=== PATIENT | female | born 1955 | race Caucasian/White ===

== ENCOUNTER → 2016-07-04 | Outpatient (CLI) | payer OTHER ==
[2016-07-04 13:33] LABS: CREATININE FOR GFR 0.64 MG/DL (0.55-1.02); GLOMERULAR FILTRATION RATE > 60.0 (>51); GLUCOSE, FASTING 105 MG/DL (70-105)
== END ==
LOC: M WUC 09:13
PROVIDERS: ATTEND Internal Medicine Cardiovascular Disease
DX: R73.9 Hyperglycemia, unspecified (principal); I10 Essential (primary) hypertension

== ENCOUNTER → 2016-07-08 | Outpatient (REF) | payer OTHER ==
[2016-07-08 16:51] LABS: MEAN CORPUSCULAR HEMOGLOBIN 28.8 pg (27.0-33.0); MEAN CORPUSCULAR HGB CONC 31.9 g/dl (32.0-36.5); MEAN CORPUSCULAR VOLUME 90.1 fl (80.0-96.0); RED CELL DISTRIBUTION WIDTH 13.8 % (11.5-14.5); WHITE BLOOD COUNT 9.5 K/mm3 (4.0-10.0)
[2016-07-08 18:21] LABS: ALBUMIN 3.9 GM/DL (3.2-5.2); ALBUMIN/GLOBULIN RATIO 1.11 (1.00-1.93); ALKALINE PHOSPHATASE 49 U/L (45-117); ALT/SGPT 18 U/L (12-78); ANION GAP 8 MEQ/L (8-16); AST/SGOT 15 U/L (15-37); BILIRUBIN,TOTAL 0.2 MG/DL (0.2-1.0); BLOOD UREA NITROGEN 9 MG/DL (7-18); CALCIUM LEVEL 8.5 MG/DL (8.5-10.1); CARBON DIOXIDE LEVEL 28 MEQ/L (21-32); CHLORIDE LEVEL 101 MEQ/L (98-107); CHOLESTEROL LEVEL 162 MG/DL (<200); CREATININE FOR GFR 0.57 MG/DL (0.55-1.02); GLOMERULAR FILTRATION RATE > 60.0 (>51); GLUCOSE, FASTING 89 MG/DL (70-105); POTASSIUM SERUM 4.2 MEQ/L (3.5-5.1); SODIUM LEVEL 137 MEQ/L (136-145); TOTAL PROTEIN 7.4 GM/DL (6.4-8.2); TRIGLYCERIDES LEVEL 94 MG/DL (<150)
== END ==
LOC: M SFHCCLAY 14:07
PROVIDERS: ATTEND Nurse Practitioner Family
DX: K21.9 Gastro-esophageal reflux disease without esophagitis (principal); I10 Essential (primary) hypertension; R73.9 Hyperglycemia, unspecified; E78.4 Other hyperlipidemia; E55.9 Vitamin D deficiency, unspecified

== ENCOUNTER → 2016-11-23 | Outpatient (CLI) | payer OTHER ==
--- NOTE | 2016-11-23 14:43 | REP ---
Chest two views HISTORY: Cough Comparison: 05/26/2016 The lungs are clear. The heart is normal in size. The pulmonary vasculature is normal in appearance. Degenerative change is present in the thoracic spine. IMPRESSION: No acute disease. Signed by Alexis Caldwell MD 11/23/2016 02:34 P
== END ==
LOC: M WUC 13:14
PROVIDERS: ATTEND Nurse Practitioner Family
DX: R73.09 Other abnormal glucose (principal)

== ENCOUNTER 2016-12-07 22:14 | Emergency (ER) | payer OTHER ==
[~2016-12-07] VITALS: Ht 149.9 cm; Wt 59.6 kg
[2016-12-07] MEDS ORDERED: VITA1CAP40 (22:36)
[2016-12-07] MEDS ORDERED: ATOR40TA75 (22:36)
[2016-12-07] MEDS ORDERED: LOSA100T36 (22:36)
[2016-12-07] MEDS ORDERED: CLOP75TA2 (22:36)
[2016-12-07] MEDS ORDERED: TRIA1CR (22:36)
[2016-12-07] MEDS ORDERED: ALBU17IN (22:36)
[2016-12-07] MEDS ORDERED: ASPI1TAB15 (22:36)
[2016-12-07] MEDS ORDERED: CYCL10TA (22:36)
[2016-12-07] MEDS ORDERED: FLUC150T (22:36)
[2016-12-07] MEDS ORDERED: NITR0.4S14 (22:36)
[2016-12-07] MEDS ORDERED: AMLO5TAB2 (22:36)
[2016-12-07] MEDS ORDERED: OMEP40CA2 (22:36)
[2016-12-07] MEDS ORDERED: LORA10TA2 (22:36)
[2016-12-07] MEDS ORDERED: RANI150T (22:36)
[2016-12-07] MEDS ORDERED: ZOLP10TA2 (22:36)
[2016-12-07 23:00] LABS: INR 0.89
[2016-12-07] MEDS ORDERED: GI COCKTAIL 50ML BTL(HYOSCYAMINE/MAALOX/LIDOCAINE VISCOUS)(1:3:1) PO ONE (23:00)
[2016-12-07 23:02] LABS: BASO # 0.1 K/mm3 (0.0-0.2); BASO % 0.6 % (0.0-1.0); EOS # 0.3 K/mm3 (0.0-0.50); EOS % 1.6 % (0.0-3.0); LARGE UNSTAINED CELL # 0.1 K/mm3 (0.0-0.4); LARGE UNSTAINED CELL % 0.6 % (0.0-4.0); LYMPH # 2.2 K/mm3 (1.5-4.5); LYMPH % 11.7 % (24.0-44.0); MEAN CORPUSCULAR HEMOGLOBIN 30.8 pg (27.0-33.0); MEAN CORPUSCULAR VOLUME 93.4 fl (80.0-96.0); MONO % 5.4 % (0.0-5.0); NEUTROPHILS # 14.4 K/mm3 (1.8-7.7); PLATELET COUNT, AUTOMATED 321 k/mm3 (150-450); RED CELL DISTRIBUTION WIDTH 13.1 % (11.5-14.5); WHITE BLOOD COUNT 17.9 K/mm3 (4.0-10.0)
[2016-12-07 23:14] LABS: ALBUMIN 4.5 GM/DL (3.2-5.2); ALBUMIN/GLOBULIN RATIO 1.15 (1.00-1.93); ALKALINE PHOSPHATASE 51 U/L (45-117); ALT/SGPT 26 U/L (12-78); ANION GAP 4 MEQ/L (8-16); AST/SGOT 19 U/L (15-37); BILIRUBIN,DIRECT < 0.1 MG/DL (0.0-0.2); BILIRUBIN,TOTAL 0.3 MG/DL (0.2-1.0); BLOOD UREA NITROGEN 8 MG/DL (7-18); CALCIUM LEVEL 9.4 MG/DL (8.5-10.1); CARBON DIOXIDE LEVEL 29 MEQ/L (21-32); CHLORIDE LEVEL 105 MEQ/L (98-107); CREATININE FOR GFR 0.76 MG/DL (0.55-1.02); GLOMERULAR FILTRATION RATE > 60.0 (>51); GLUCOSE, FASTING 110 MG/DL (70-105); POTASSIUM SERUM 3.8 MEQ/L (3.5-5.1); SODIUM LEVEL 138 MEQ/L (136-145); TOTAL PROTEIN 8.4 GM/DL (6.4-8.2)
[2016-12-08] MEDS ORDERED: PANTOPRAZOLE 40MG TAB (PROTONIX) PO ONE (02:45)
[2016-12-08] MEDS ORDERED: SUCRALFATE 1 GM TAB PO ONE (02:45)
[2016-12-08] MEDS ORDERED: MORPHINE 2 MG/ML 1ML SYRINGE IV ONE (02:45)
[2016-12-08 03:06] VITALS: BP 165/84
--- NOTE | 2016-12-08 07:35 | REP ---
Clinical: Chest pain . Comparison: 11/23/2016 . Technique: PA and lateral. Findings: The mediastinum and cardiac silhouette are normal. The lung porter are clear and without acute consolidation, effusion, or pneumothorax. The skeletal structures are intact and normal. Impression: 1. No acute cardiopulmonary process. Signed by Edgar Lundberg MD 12/08/2016 07:26 A
--- NOTE | 2016-12-09 07:23 | ECGEPIP ---
Stationary ECG Study [facility] - ED Test Date: 2016-12-07 Pat Name: NANCY GOMEZ Department: Room: - Gender: F Cushion Padder: mary : 1955 Requested By: LUISITO DAVIS Order Number: [id number] Reading MD: Autumn Mariee Measurements Intervals [place] Rate: 102 P: 69 MI: 156 QRS: 20 QRSD: 77 T: 50 QT: 317 QTc: 414 Interpretive Statements SINUS TACHYCARDIA ABNORMAL RHYTHM ECG INCREASED RATE 05/26/16 Electronically Signed On 12-09-2016 7:22:57 EDT by Autumn Mariee
== END 2016-12-08 03:19 | disposition home or self-care (01) ==
LOC: M ED 22:14
DX: K21.9 Gastro-esophageal reflux disease without esophagitis (principal); F17.210 Nicotine dependence, cigarettes, uncomplicated; J44.9 Chronic obstructive pulmonary disease, unspecified; E78.4 Other hyperlipidemia; I10 Essential (primary) hypertension; I25.10 Atherosclerotic heart disease of native coronary artery without angina pectoris

== ENCOUNTER → 2017-03-21 | Outpatient (CLI) | payer OTHER ==
[~2017-03-21] MED LIST: ALBU17IN; AMLO5TAB2; ASPI1TAB15; ATOR40TA75; CLOP75TA2; CYCL10TA; FLUC150T; LORA10TA2; LOSA100T36; NITR0.4S14; OMEP40CA2; RANI150T; TRIA1CR; VITA1CAP40; ZOLP10TA2
== END ==
LOC: M WUC 09:23
PROVIDERS: ATTEND Nurse Practitioner Family
DX: R73.09 Other abnormal glucose (principal)

== ENCOUNTER → 2017-07-10 | Outpatient (CLI) | payer OTHER ==
[2017-07-10 20:01] LABS: HEMATOCRIT 36.8 % (36.0-47.0); HEMOGLOBIN 11.9 g/dl (12.0-16.0); MEAN CORPUSCULAR HEMOGLOBIN 29.6 pg (27.0-33.0); MEAN CORPUSCULAR HGB CONC 32.3 g/dl (32.0-36.5); MEAN CORPUSCULAR VOLUME 91.5 fl (80.0-96.0); PLATELET COUNT, AUTOMATED 318 10^3/uL (150-450); RED BLOOD COUNT 4.02 10^6/uL (4.00-5.40); RED CELL DISTRIBUTION WIDTH 13.6 % (11.5-14.5); WHITE BLOOD COUNT 8.1 10^3/uL (4.0-10.0)
[2017-07-10 20:28] LABS: ALBUMIN 4.3 GM/DL (3.2-5.2); ALBUMIN/GLOBULIN RATIO 1.39 (1.00-1.93); ALKALINE PHOSPHATASE 46 U/L (45-117); ALT/SGPT 21 U/L (12-78); ANION GAP 9 MEQ/L (8-16); AST/SGOT 16 U/L (7-37); BILIRUBIN,TOTAL 0.3 MG/DL (0.2-1.0); BLOOD UREA NITROGEN 11 MG/DL (7-18); CALCIUM LEVEL 8.7 MG/DL (8.8-10.2); CARBON DIOXIDE LEVEL 26 MEQ/L (21-32); CHLORIDE LEVEL 103 MEQ/L (98-107); CHOLESTEROL LEVEL 167 MG/DL (<200); CREATININE FOR GFR 0.59 MG/DL (0.55-1.30); GLOMERULAR FILTRATION RATE > 60.0 (>45); GLUCOSE, FASTING 91 MG/DL (70-100); HDL CHOLESTEROL 59 MG/DL (>40); NON-HDL-C 108 MG/DL; POTASSIUM SERUM 4.2 MEQ/L (3.5-5.1); SODIUM LEVEL 138 MEQ/L (136-145); TOTAL PROTEIN 7.4 GM/DL (6.4-8.2); TRIGLYCERIDES LEVEL 175 MG/DL (<150)
[2017-07-10 20:29] LABS: ESTIMATED AVERAGE GLUCOSE 114 MG/DL (60-110); HEMOGLOBIN A1c 5.6 %
== END ==
LOC: M WUC 13:44
DX: K21.9 Gastro-esophageal reflux disease without esophagitis (principal); I10 Essential (primary) hypertension; R73.09 Other abnormal glucose; E78.4 Other hyperlipidemia; E55.9 Vitamin D deficiency, unspecified
CPT/HCPCS: 80053

== ENCOUNTER → 2017-07-12 | Outpatient (CLI) | payer OTHER | LOC: M CLY 10:32 | DX: R05 Cough (principal); F17.210 Nicotine dependence, cigarettes, uncomplicated | CPT/HCPCS: 71046 ==

== ENCOUNTER → 2017-09-01 | Outpatient (CLI) | payer OTHER | LOC: M RAD 09:19 | DX: N64.4 Mastodynia (principal); Z80.3 Family history of malignant neoplasm of breast | CPT/HCPCS: 77066 ==

== ENCOUNTER → 2017-10-10 | Outpatient (CLI) | payer OTHER | LOC: M RAD 09:56 | DX: F17.210 Nicotine dependence, cigarettes, uncomplicated (principal) | CPT/HCPCS: G0297 ==

== ENCOUNTER → 2017-11-21 | Outpatient (CLI) | payer OTHER ==
[2017-11-21 12:22] LABS: CALCIUM LEVEL 9.2 MG/DL (8.8-10.2); CHOLESTEROL LEVEL 166 MG/DL (<200); CHOLESTEROL RISK RATIO 2.677 (<5); HDL CHOLESTEROL 62 MG/DL (>40); LDL CHOLESTEROL 77.4 MG/DL (<100); NON-HDL-C 104 MG/DL; TRIGLYCERIDES LEVEL 133 MG/DL (<150)
[2017-11-21 12:35] LABS: TOTAL 25(OH) VITAMIN D 67.1 NG/ML (30.0-100.0)
== END ==
LOC: M WUC 10:18
DX: I10 Essential (primary) hypertension (principal)
CPT/HCPCS: 82310

== ENCOUNTER → 2017-11-22 | Outpatient (CLI) | payer OTHER | LOC: M CLY 09:48 | DX: M19.012 Primary osteoarthritis, left shoulder (principal); M51.37 Other intervertebral disc degeneration, lumbosacral region; M54.5 Low back pain | CPT/HCPCS: 72110 ==

== ENCOUNTER → 2018-02-22 | Outpatient (CLI) | payer OTHER | LOC: M CLY 10:43 | DX: M19.041 Primary osteoarthritis, right hand (principal); M19.042 Primary osteoarthritis, left hand | CPT/HCPCS: 73120 ==

== ENCOUNTER → 2018-08-03 | Outpatient (CLI) | payer OTHER, MEDICAID ==
[~2018-08-03] MED LIST changes: -AMLO5TAB2; +AMLO5TAB6; +LORA-243; -LORA10TA2; -LOSA100T36; +LOSA100T50; -VITA1CAP40; +VITA50005
[2018-08-03 13:17] LABS: HEMATOCRIT 35.5 % (36.0-47.0); MEAN CORPUSCULAR HGB CONC 33.8 g/dl (32.0-36.5); MEAN CORPUSCULAR VOLUME 88.8 fl (80.0-96.0); PLATELET COUNT, AUTOMATED 312 10^3/uL (150-450); WHITE BLOOD COUNT 9.7 10^3/uL (4.0-10.0)
[2018-08-03 13:27] LABS: INR 0.92; PROTHROMBIN TIME 12.5 SECONDS (12.1-14.4)
[2018-08-03 13:28] LABS: PARTIAL THROMBOPLASTIN TIME 32.1 SECONDS (25.4-37.6)
== END ==
LOC: M WUC 09:16
PROVIDERS: ATTEND Physician Assistant
DX: Z01.812 Encounter for preprocedural laboratory examination (principal)

== ENCOUNTER → 2018-08-03 | Outpatient (CLI) | payer OTHER, MEDICAID ==
[2018-08-03 13:02] LABS: HEMATOCRIT 35.7 % (36.0-47.0); MEAN CORPUSCULAR HEMOGLOBIN 29.7 pg (27.0-33.0); MEAN CORPUSCULAR HGB CONC 33.6 g/dl (32.0-36.5); MEAN CORPUSCULAR VOLUME 88.4 fl (80.0-96.0); PLATELET COUNT, AUTOMATED 306 10^3/uL (150-450); RED BLOOD COUNT 4.04 10^6/uL (4.00-5.40); WHITE BLOOD COUNT 9.1 10^3/uL (4.0-10.0)
[2018-08-03 13:11] LABS: ALT/SGPT 29 U/L (12-78); BILIRUBIN,TOTAL 0.4 MG/DL (0.2-1.0); BLOOD UREA NITROGEN 12 MG/DL (7-18); CALCIUM LEVEL 8.7 MG/DL (8.8-10.2); CARBON DIOXIDE LEVEL 27 MEQ/L (21-32); CHLORIDE LEVEL 101 MEQ/L (98-107); CHOLESTEROL LEVEL 153 MG/DL (<200); CHOLESTEROL RISK RATIO 2.781 (<5); CREATININE FOR GFR 0.56 MG/DL (0.55-1.30); GLOMERULAR FILTRATION RATE > 60.0 (>45); GLUCOSE, FASTING 104 MG/DL (70-100); HDL CHOLESTEROL 55 MG/DL (>40); LDL CHOLESTEROL 76 MG/DL (<100); NON-HDL-C 98 MG/DL; POTASSIUM SERUM 4.3 MEQ/L (3.5-5.1); SODIUM LEVEL 135 MEQ/L (136-145); TOTAL PROTEIN 6.9 GM/DL (6.4-8.2); TRIGLYCERIDES LEVEL 109 MG/DL (<150)
[2018-08-03 15:40] LABS: TOTAL 25(OH) VITAMIN D 61.7 NG/ML (30.0-100.0)
== END ==
LOC: M WUC 09:20
PROVIDERS: ATTEND Nurse Practitioner Family
DX: I10 Essential (primary) hypertension (principal); E78.49 Other hyperlipidemia; E55.9 Vitamin D deficiency, unspecified

== ENCOUNTER → 2018-11-26 | Outpatient (CLI) | payer OTHER ==
[~2018-11-26] MED LIST changes: +TRIA0.1C60; -TRIA1CR
[2018-11-26 16:44] LABS: ALBUMIN 3.9 GM/DL (3.2-5.2); BLOOD UREA NITROGEN 14 MG/DL (7-18); CALCIUM LEVEL 9.4 MG/DL (8.8-10.2); CARBON DIOXIDE LEVEL 28 MEQ/L (21-32); CHLORIDE LEVEL 104 MEQ/L (98-107); CREATININE FOR GFR 0.62 MG/DL (0.55-1.30); GLOMERULAR FILTRATION RATE > 60.0 (>45); GLUCOSE, FASTING 97 MG/DL (70-100); PHOSPHORUS LEVEL 4.8 MG/DL (2.5-4.9); SODIUM LEVEL 137 MEQ/L (136-145)
[2018-11-26 16:46] LABS: BASO # 0.1 10^3/uL (0.0-0.2); BASO % 0.9 % (0.0-1.0); EOS # 0.2 10^3/uL (0.0-0.50); EOS % 2.5 % (0.0-3.0); HEMATOCRIT 37.6 % (36.0-47.0); HEMOGLOBIN 12.5 g/dl (12.0-15.5); LYMPH # 2.5 10^3/uL (1.5-4.5); LYMPH % 30.7 % (24.0-44.0); MEAN CORPUSCULAR HEMOGLOBIN 30.7 pg (27.0-33.0); MEAN CORPUSCULAR HGB CONC 33.2 g/dl (32.0-36.5); MEAN CORPUSCULAR VOLUME 92.4 fl (80.0-96.0); MONO # 0.9 10^3/uL (0.0-0.8); MONO % 11.2 % (0.0-5.0); NEUTROPHILS # 4.4 10^3/uL (1.8-7.7); NEUTROPHILS % 54.3 % (36.0-66.0); PLATELET COUNT, AUTOMATED 301 10^3/uL (150-450); RED BLOOD COUNT 4.07 10^6/uL (4.00-5.40); WHITE BLOOD COUNT 8.1 10^3/uL (4.0-10.0)
== END ==
LOC: M WUC 11:05
PROVIDERS: ATTEND Physician Assistant
DX: I25.119 Atherosclerotic heart disease of native coronary artery with unspecified angina pectoris (principal)

== ENCOUNTER → 2019-04-30 | Outpatient (CLI) | payer OTHER ==
[~2019-04-30] MED LIST changes: -OMEP40CA2; +OMEP40CA97
--- NOTE | 2019-04-30 09:42 | PFTRPT ---
Height: 58.00 Inches Weight: 142.00 Lbs BSA: 1.57 Diagnosis: R06.00 DATE OF PROCEDURE: 04/30/2019 ORDERED BY: CT Murphy Spirometry: Pre and post bronchodilator study of excellent technical quality. Forced vital capacity reduced. FEV1 in proportion. Obstructive index is, therefore, normal. Flow Volume Loop: Expiratory limb of the flow volume loop does show some nonspecific limitation. No significant bronchodilator response identified. Lung Volumes: Total lung capacity normal. Residual volume borderline for air trapping. Diffusing Capacity: Diffusing capacity, although reduced, is appropriate for alveolar volume. Hemoglobin: Hemoglobin reduced at 10.2. Airway Mechanics: Airway resistance elevated with a concomitant decrease in airway conductance. IMPRESSION: Nonspecific flow rate limitation with anemia and diffusing capacity impairment probably on that basis. Mild elevation of the airway resistance. Please correlate clinically. MTDD
--- NOTE | 2019-04-30 11:00 | REP ---
CT CHEST WITHOUT CONTRAST: Low-dose screening exam. HISTORY: Nicotine dependence. Comparison chest CT study is from October 10, 2017. CT FINDINGS: No evidence of lung mass or significant pulmonary nodule is seen. Minimal linear fibrosis is seen in the right middle lobe. This is unchanged. No endobronchial lesion is appreciated. There is some vascular calcification. IMPRESSION: Lung RADS category [address] negative exam[address] Repeat screening CT study suggested 1 year. Electronically Signed by Tereso Toribio MD 04/30/2019 03:33 P
== END ==
LOC: M RAD 08:29
PROVIDERS: ATTEND Physician Assistant
DX: Z12.2 Encounter for screening for malignant neoplasm of respiratory organs (principal); F17.218 Nicotine dependence, cigarettes, with other nicotine-induced disorders
CPT/HCPCS: 88738; 94060; 94726; 94729; G0297

== ENCOUNTER → 2019-07-23 | Outpatient (REF) | payer OTHER ==
[2019-07-23 16:45] LABS: HEMOGLOBIN 13.2 g/dl (12.0-15.5); MEAN CORPUSCULAR HEMOGLOBIN 29.5 pg (27.0-33.0); MEAN CORPUSCULAR HGB CONC 32.2 g/dl (32.0-36.5); MEAN CORPUSCULAR VOLUME 91.5 fl (80.0-96.0); PLATELET COUNT, AUTOMATED 319 10^3/uL (150-450); RED BLOOD COUNT 4.48 10^6/uL (4.00-5.40); WHITE BLOOD COUNT 10.2 10^3/uL (4.0-10.0)
[2019-07-23 16:59] LABS: ALBUMIN 4.2 GM/DL (3.2-5.2); ALT/SGPT 26 U/L (12-78); BILIRUBIN,TOTAL 0.3 MG/DL (0.2-1.0); BLOOD UREA NITROGEN 7 MG/DL (7-18); CALCIUM LEVEL 9.3 MG/DL (8.8-10.2); CARBON DIOXIDE LEVEL 28 MEQ/L (21-32); CHLORIDE LEVEL 106 MEQ/L (98-107); CHOLESTEROL LEVEL 157 MG/DL (<200); CHOLESTEROL RISK RATIO 2.803 (<5); CREATININE FOR GFR 0.52 MG/DL (0.55-1.30); GLOMERULAR FILTRATION RATE > 60.0 (>45); GLUCOSE, FASTING 93 MG/DL (70-100); HDL CHOLESTEROL 56 MG/DL (>40); LDL CHOLESTEROL 75 MG/DL (<100); NON-HDL-C 101 MG/DL; POTASSIUM SERUM 4.5 MEQ/L (3.5-5.1); SODIUM LEVEL 139 MEQ/L (136-145); TOTAL PROTEIN 7.4 GM/DL (6.4-8.2); TRIGLYCERIDES LEVEL 130 MG/DL (<150)
[2019-07-23 19:15] LABS: HEMOGLOBIN A1c 5.6 %
[2019-07-24 11:44] LABS: TOTAL 25(OH) VITAMIN D 52.9 NG/ML (30.0-100.0)
[2019-07-24 12:52] LABS: HEPATITIS C VIRUS ABY INDEX 1.5 INDEX (<0.8)
== END ==
LOC: M SFHCCLAY 11:47
PROVIDERS: ATTEND Nurse Practitioner Family
DX: M54.5 Low back pain (principal)

== ENCOUNTER → 2019-07-29 | Outpatient (CLI) | payer OTHER ==
--- NOTE | 2019-07-29 16:13 | REPMRS ---
Patient History The patient states she had a clinical breast exam in 2019. Family history of breast cancer at age 60 in mother. Digital Woman Screen Mammo: July 29, 2019 - Exam #: [id number] Bilateral CC and MLO view(s) were taken. Technologist: Nathalie Sexton, Technologist Prior study comparison: September 01, 2017, digital mammo diagnostic bilateral, performed at [facility]. FINDINGS: There are scattered fibroglandular densities. There has been no change in the appearance of the mammogram from the prior studies. There is a mild amount of scattered fibroglandular density which is fairly symmetric. There is no interval development of dominant mass, architectural distortion, or grouped microcalcification suggestive of malignancy. 3-D tomosynthesis shows no additional findings. Assessment: BI-RADS/ACR category 1 mammogram. Negative Mammogram. Recommendation Routine screening mammogram of both breasts in 1 year (for women over age 40). This patient's Lifetime Breast Cancer Risk is estimated at 10.6 %. This mammogram was interpreted with the aid of an FDA-approved computer-aided dectection system. Electronically Signed By: Julien Toribio MD 07/29/19 [id number]
== END ==
LOC: M WHC 15:07
PROVIDERS: ATTEND Nurse Practitioner Family
DX: Z12.31 Encounter for screening mammogram for malignant neoplasm of breast (principal); Z80.3 Family history of malignant neoplasm of breast

== ENCOUNTER → 2019-10-15 | Outpatient (CLI) | payer OTHER ==
[~2019-10-15] MED LIST changes: +CYCL-707; -CYCL10TA
== END ==
LOC: M LABSMTC 13:25
PROVIDERS: ATTEND Family Medicine
DX: Z11.59 Encounter for screening for other viral diseases (principal); Z20.828 Contact with and (suspected) exposure to other viral communicable diseases

== ENCOUNTER → 2020-03-17 | Outpatient (CLI) | payer OTHER ==
[~2020-03-17] MED LIST changes: +AMLO1TAB24; -AMLO5TAB6; +ASPI-546; -ASPI1TAB15
[2020-03-17 13:41] LABS: HEMATOCRIT 39.2 % (36.0-47.0); MEAN CORPUSCULAR HEMOGLOBIN 29.6 pg (27.0-33.0); MEAN CORPUSCULAR HGB CONC 33.2 g/dl (32.0-36.5); MEAN CORPUSCULAR VOLUME 89.3 fl (80.0-96.0); PLATELET COUNT, AUTOMATED 286 10^3/uL (150-450); RED BLOOD COUNT 4.39 10^6/uL (4.00-5.40); WHITE BLOOD COUNT 6.7 10^3/uL (4.0-10.0)
[2020-03-17 14:32] LABS: ALBUMIN 3.7 GM/DL (3.2-5.2); ALT/SGPT 20 U/L (12-78); BILIRUBIN,TOTAL 0.4 MG/DL (0.2-1.0); BLOOD UREA NITROGEN 8 MG/DL (7-18); CALCIUM LEVEL 8.7 MG/DL (8.8-10.2); CARBON DIOXIDE LEVEL 24 MEQ/L (21-32); CHLORIDE LEVEL 103 MEQ/L (98-107); CHOLESTEROL LEVEL 186 MG/DL (<200); CHOLESTEROL RISK RATIO 3.509 (<5); CREATININE FOR GFR 0.54 MG/DL (0.55-1.30); GLOMERULAR FILTRATION RATE > 60.0 (>45); GLUCOSE, FASTING 103 MG/DL (70-100); HDL CHOLESTEROL 53 MG/DL (>40); LDL CHOLESTEROL 96 MG/DL (<100); NON-HDL-C 133 MG/DL; POTASSIUM SERUM 4.4 MEQ/L (3.5-5.1); SODIUM LEVEL 134 MEQ/L (136-145); TOTAL 25(OH) VITAMIN D 44.5 NG/ML (30.0-100.0); TOTAL PROTEIN 6.9 GM/DL (6.4-8.2); TRIGLYCERIDES LEVEL 187 MG/DL (<150)
== END ==
LOC: M WUC 11:06
PROVIDERS: ATTEND Nurse Practitioner Family
DX: E78.5 Hyperlipidemia, unspecified (principal); I10 Essential (primary) hypertension; E55.9 Vitamin D deficiency, unspecified; R53.83 Other fatigue

== ENCOUNTER → 2020-03-17 | Outpatient (CLI) | payer OTHER ==
[2020-03-17 13:41] LABS: PLATELET COUNT, AUTOMATED 284 10^3/uL (150-450)
[2020-03-17 13:49] LABS: INR 0.91; PROTHROMBIN TIME 12.4 SECONDS (12.5-14.3)
[2020-03-17 13:50] LABS: PARTIAL THROMBOPLASTIN TIME 28.4 SECONDS (24.2-38.5)
[2020-03-17 14:04] LABS: COLLAGEN EPINEPHRINE 122 SECONDS (74-162)
== END ==
LOC: M WUC 11:09
PROVIDERS: ATTEND Physician Assistant
DX: M51.27 Other intervertebral disc displacement, lumbosacral region (principal)

== ENCOUNTER → 2020-03-18 | Outpatient (CLI) | payer OTHER | LOC: M LABSMTC 10:13 | PROVIDERS: ATTEND Physician Assistant | DX: Z11.59 Encounter for screening for other viral diseases (principal) ==

== ENCOUNTER → 2020-05-05 | Outpatient (REF) | payer OTHER | LOC: M SFHCCLAY 09:07 | PROVIDERS: ATTEND Physician Assistant | DX: R30.0 Dysuria (principal) ==

== ENCOUNTER → 2020-05-11 | Outpatient (REF) | payer OTHER | LOC: M SFHCCLAY 16:29 | PROVIDERS: ATTEND Physician Assistant | DX: R30.0 Dysuria (principal) ==

== ENCOUNTER → 2020-05-20 | Outpatient (CLI) | payer OTHER | LOC: M LABSMTC 12:13 | PROVIDERS: ATTEND Physician Assistant | DX: Z01.812 Encounter for preprocedural laboratory examination (principal); Z20.828 Contact with and (suspected) exposure to other viral communicable diseases ==

== ENCOUNTER → 2020-05-22 | Outpatient (CLI) | payer OTHER ==
--- NOTE | 2020-05-22 13:43 | REP ---
INDICATION: NICOTINE DEPENDENCE. COMPARISON: Comparison prior screening lung CT studies are dated April 30, 2019 and October 10, 2017.. TECHNIQUE: Low-dose screening chest CT. 3 mm axial lung window only slices. 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 There is some vascular calcification in the aortic arch and in the coronary artery distribution. There is a granulomatous calcified nodule in the periphery of the right upper lobe on page 11/08/1993 series 201 of today's study. This is unchanged from the 2018 prior study. There is a 3 mm subpleural nodule in the left lower lobe without visible calcification which is also unchanged from the 2018 study. This nodule projects on page 5494 in today's study. There is mild linear fibrosis in the right base unchanged. No new pulmonary nodule is appreciated. IMPRESSION: Stable lung RADS category 1 findings. Repeat study suggested in 1 year. <Electronically signed by Julien Toribio > 05/22/20 [id number]
== END ==
LOC: M RAD 10:53
PROVIDERS: ATTEND Physician Assistant
DX: F17.218 Nicotine dependence, cigarettes, with other nicotine-induced disorders (principal)

== ENCOUNTER → 2020-06-19 | Outpatient (REF) | payer OTHER | LOC: M SFHCCLAY 09:16 | PROVIDERS: ATTEND Physician Assistant | DX: N89.8 Other specified noninflammatory disorders of vagina (principal) ==

== ENCOUNTER → 2020-07-01 | Outpatient (CLI) | payer OTHER ==
[~2020-07-01] MED LIST changes: +PROHANCE 279.3MG/ML 15ML VIAL As Ordered ONE
--- NOTE | 2020-07-02 08:20 | REP ---
INDICATION: SPONDYLOLISTHESIS. COMPARISON: Comparison MRI study of the lumbar spine is from July 23, 2018.. TECHNIQUE: Sagittal and axial T1 and T2-weighted scans are acquired in the usual fashion with and without fat saturation. Sequences include spin echo, turbo spin-echo, and STIR imaging sequences. Gadolinium enhancement dose was 11 mL of intravenous ProHance. Post gadolinium enhanced axial and sagittal T1 weighted scans are included. FINDINGS: Lumbar vertebral body heights are preserved. Alignment is unchanged. No extra vertebral abnormality is observed. The tip of the conus medullaris is normal in position and appearance at L1-L2 disc level. There are degenerative disc changes in the lower thoracic spine at T10-T11, T11-12, and T12-L1. At T 11 12, there is central disc bulging effacing the ventral subarachnoid space. Reactive marrow changes are seen on either side of this disc in the T 11 and T12 vertebral body. These findings appear to be unchanged. Sagittal images at T12-L1 again demonstrate mild central disc bulging. At L1-L2, axial and sagittal images demonstrate mild diffuse disc bulging. No central canal stenosis is seen. No foraminal narrowing or disc protrusion is seen. At L2-3 there is degenerative disc narrowing and mild diffuse disc bulging. This indents the ventral margin of thecal sac. There is no central canal stenosis or neural foraminal narrowing. No change from comparison study at L2-3. At L3-4, there is diffuse disc bulging contributing along with ligamentum flavum hypertrophy and developmentally short pedicles, 2 mild central canal stenosis. No neural foraminal narrowing is seen. No change from comparison study. At L4-5, degenerative disc disease is again seen. There is a 4 mm and grade 1 spondylolisthesis which is slightly more prominent. Diffuse disc bulging is present. There is mild left-sided foraminal narrowing due to disc bulging and facet hypertrophy. This is unchanged. Mild central canal stenosis is noted. Moderate osteoarthritic facet disease is noted with ligamentum flavum hypertrophy. There is a small central focal disc protrusion contributing to the thecal sac compression at this level. This finding is unchanged. At L5-S1, diffuse disc bulging and a small right paracentral focal disc protrusion or again seen. Minimal thecal sac compression. Facet hypertrophy is noted bilaterally. Mild bilateral neural foramina narrowing is appreciated. Findings unchanged at L5-S1. IMPRESSION: Degenerative spondylosis as above. Central canal stenosis at L3-4 and L4-5. Grade 1 spondylolisthesis L4-5 now measures 4 mm, previously 3. Otherwise unchanged from comparison study <Electronically signed by Julien Toribio > 07/02/20 [id number]
== END ==
LOC: M RAD 16:23
PROVIDERS: ATTEND Physician Assistant
DX: M43.16 Spondylolisthesis, lumbar region (principal); M51.26 Other intervertebral disc displacement, lumbar region; M48.061 Spinal stenosis, lumbar region without neurogenic claudication
CPT/HCPCS: 72158; A9576

== ENCOUNTER → 2020-07-21 | Outpatient (REF) | payer OTHER ==
[~2020-07-21] MED LIST changes: -PROHANCE 279.3MG/ML 15ML VIAL As Ordered ONE
[2020-07-21 16:27] LABS: BASO # 0.1 10^3/uL (0.0-0.2); BASO % 0.8 % (0.0-1.0); EOS # 0.2 10^3/uL (0.0-0.5); EOS % 3.4 % (0.0-3.0); HEMATOCRIT 37.8 % (36.0-47.0); HEMOGLOBIN 12.1 g/dl (12.0-15.5); LYMPH # 2.4 10^3/uL (1.5-5.0); MEAN CORPUSCULAR HEMOGLOBIN 29.2 pg (27.0-33.0); MEAN CORPUSCULAR VOLUME 91.1 fl (80.0-96.0); MONO # 0.6 10^3/uL (0.0-0.8); MONO % 8.8 % (0.0-5.0); NEUTROPHILS # 3.8 10^3/uL (1.5-8.5); NEUTROPHILS % 52.7 % (36.0-66.0); PLATELET COUNT, AUTOMATED 280 10^3/uL (150-450); RED BLOOD COUNT 4.15 10^6/uL (4.00-5.40); WHITE BLOOD COUNT 7.1 10^3/uL (4.0-10.0)
[2020-07-21 16:48] LABS: ALBUMIN 3.7 GM/DL (3.2-5.2); ALT/SGPT 22 U/L (12-78); BILIRUBIN,TOTAL 0.2 MG/DL (0.2-1.0); BLOOD UREA NITROGEN 11 MG/DL (7-18); CALCIUM LEVEL 8.7 MG/DL (8.8-10.2); CARBON DIOXIDE LEVEL 30 MEQ/L (21-32); CHLORIDE LEVEL 105 MEQ/L (98-107); CREATININE FOR GFR 0.55 MG/DL (0.55-1.30); GLOMERULAR FILTRATION RATE > 60.0 (>45); GLUCOSE, FASTING 103 MG/DL (70-100); LIPASE 146 U/L (73-393); POTASSIUM SERUM 4.4 MEQ/L (3.5-5.1); SODIUM LEVEL 139 MEQ/L (136-145); TOTAL PROTEIN 6.4 GM/DL (6.4-8.2)
== END ==
LOC: M SFHCCLAY 11:10
PROVIDERS: ATTEND Physician Assistant
DX: R10.32 Left lower quadrant pain (principal)

== ENCOUNTER → 2020-07-21 | Outpatient (CLI) | payer OTHER ==
--- NOTE | 2020-07-21 11:50 | REP ---
INDICATION: R10.32 LEFT LOWER QUADRANT PAIN. COMPARISON: Comparison radiographs are from November 22, 2017.. TECHNIQUE: Supine films of the abdomen, two views provided. FINDINGS: The bowel gas pattern is normal with air and stool in a nondistended colon. Psoas margins and flank stripes are intact. Vascular calcification is observed. There are degenerative spondylosis changes in the lumbar spine. No mass, organomegaly, or other pathologic calcification is seen. IMPRESSION: Vascular calcification. Normal bowel gas pattern. Negative KUB. <Electronically signed by Julien Toribio > 07/21/20 [id number]
== END ==
LOC: M CLY 11:22
PROVIDERS: ATTEND Physician Assistant
DX: R10.32 Left lower quadrant pain (principal)

== ENCOUNTER → 2020-07-29 | Outpatient (CLI) | payer OTHER ==
[~2020-07-29] MED LIST changes: +GASTROGRAFIN SOLUTION 30ML (Q9963) As Ordered ONE; +ISOVUE-370 76% 100ML VIAL As Ordered ONE
--- NOTE | 2020-07-30 07:31 | REP ---
INDICATION: WORSENING LOWER ABD PAIN, DISTENSION, SMOKER. COMPARISON: 05/12/2016 TECHNIQUE: Axial contrast-enhanced images from the lung bases to the pubic symphysis using oral and 100 cc Isovue 370 intravenous contrast material. Coronal and sagittal reformations obtained. This CT examination was performed using the following dose reduction techniques: Automated exposure control, adjustment of mA and/or kv according to the patient's size, and the use of iterative reconstruction technique. FINDINGS: Lung bases are clear. Visualized heart and pericardium normal. Liver includes stable 1.3 cm hemangioma within the central right lobe. Spleen, pancreas, gallbladder, bilateral adrenal glands and kidneys are normal. The enteric system including stomach, small, and large bowel appears normal. No evidence for obstruction or acute inflammatory process. Normal terminal ileum and appendix are identified in the right lower quadrant. Few scattered sigmoid diverticula noted without acute diverticulitis. Pelvis demonstrates normal bladder and evidence for prior hysterectomy. No ascites. No free air. No intraperitoneal or retroperitoneal adenopathy. Abdominal aorta and vasculature demonstrate atherosclerotic changes without aneurysm or dissection. Musculoskeletal structures are intact and without acute osseous abnormality. IMPRESSION: No acute abdominopelvic pathology appreciated. Stable hepatic hemangioma. Scattered sigmoid diverticula without acute diverticulitis. No ascites, focal inflammatory stranding, adenopathy, or free air. <Electronically signed by Edgar Lundberg > 07/30/20 [id number]
== END ==
LOC: M RAD 15:40
PROVIDERS: ATTEND Physician Assistant
DX: R10.32 Left lower quadrant pain (principal)
CPT/HCPCS: 74177; Q9963; Q9967

== ENCOUNTER → 2020-07-31 | Outpatient (CLI) | payer OTHER ==
[~2020-07-31] MED LIST changes: -GASTROGRAFIN SOLUTION 30ML (Q9963) As Ordered ONE; -ISOVUE-370 76% 100ML VIAL As Ordered ONE
--- NOTE | 2020-07-31 10:43 | REPMRS ---
Patient History The patient states she has not had a clinical breast exam in over a year. Family history of breast cancer at age 60 in mother. Digital Woman Screen Mammo: July 31, 2020 - Exam #: [id number] Bilateral CC and MLO view(s) were taken. Technologist: Jazmyn Membreno Technologist Prior study comparison: July 29, 2019, bilateral digital woman screen mammo performed at [facility]. September 01, 2017, digital mammo diagnostic bilateral, performed at [facility]. FINDINGS: There are scattered fibroglandular densities. The Volpara volumetric breast density category is:B. There has been no change in the appearance of the mammogram from the prior studies. There is a mild amount of scattered fibroglandular density which is fairly symmetric. There is no interval development of dominant mass, architectural distortion, or grouped microcalcification suggestive of malignancy. 3-D tomosynthesis shows no additional findings. Assessment: BI-RADS/ACR category 1 mammogram. Negative Mammogram. Recommendation Routine screening mammogram of both breasts in 1 year (for women over age 40). This patient's [facility] Lifetime Breast Cancer Risk is estimated at 10.2 %. This mammogram was interpreted with the aid of an FDA-approved computer-aided dectection system. Electronically Signed By: Julien Toribio MD 07/31/20 [id number]
== END ==
LOC: M WHC 09:01
PROVIDERS: ATTEND Nurse Practitioner Family
DX: Z12.31 Encounter for screening mammogram for malignant neoplasm of breast (principal); Z78.0 Asymptomatic menopausal state; M85.80 Other specified disorders of bone density and structure, unspecified site; Z80.3 Family history of malignant neoplasm of breast

== ENCOUNTER → 2020-08-14 | Outpatient (CLI) | payer OTHER ==
--- NOTE | 2020-08-14 12:44 | DEXAMM ---
INDICATION: Z78.0 MENOPAUSE,M85.80 OSTEOPENIA AFTER MENOPAUSE. COMPARISON: None. TECHNIQUE: Bone density was measured using dual-energy x-ray absorptiometry (DEXA). FINDINGS: AP SPINE L1-L4 BMD 1.162 g/cm2 Young Adult T-Score -0.3 Age Matched Z-Score 1.2. LT FEMUR, TOTAL BMD 0.924 g/cm2 Young Adult T-Score -0.7 Age Matched Z-Score 0.4. LT NECK BMD 0.852 g/cm2 Young Adult T-Score -1.3 Age Matched Z-Score 0.0. RT FEMUR, TOTAL BMD 0.924 g/cm2 Young Adult T-Score -0.7 Age Matched Z-Score 0.4. RT NECK BMD 0.853 g/cm2 Young Adult T-Score -1.3 Age Matched Z-Score 0.1. IMPRESSION: There is normal bone density of the spine. There is low bone density of the left hip. There is low bone density of the right hip. FOLLOW-UP: Recommendation for the next bone density exam: 2 years. <Electronically signed by German Smith > 08/14/20 [id number]
== END ==
LOC: M WHC 10:34
PROVIDERS: ATTEND Nurse Practitioner Family
DX: Z78.0 Asymptomatic menopausal state (principal); M85.80 Other specified disorders of bone density and structure, unspecified site

== ENCOUNTER → 2020-08-31 | Outpatient (CLI) | payer OTHER ==
--- NOTE | 2020-08-31 18:11 | REPVR ---
PROCEDURE INFORMATION: Exam: MR Cervical Spine Without Contrast Exam date and time: 08/31/2020 5:11 PM Age: 65 years old Clinical indication: Neck pain; Additional info: Cervical disc degeneration TECHNIQUE: Imaging protocol: Multiplanar magnetic resonance images of the cervical spine without contrast. COMPARISON: CR SPINE LS COMPLETE 11/22/2017 10:01 AM FINDINGS: Cervical vertebral body heights are intact. Straightening of the cervical lordosis. The dens is intact. No abnormal marrow signal. No cord compression, expansion, or abnormal cord signal. Visualized structures of the posterior fossa are unremarkable. Soft tissues are unremarkable. Approximately 2.4 cm T2 hyperintense nodule in the right lobe of the thyroid gland. C2-C3: No significant canal or foraminal narrowing. C3-C4: No significant canal or foraminal narrowing. C4-C5: No significant canal or foraminal narrowing. C5-C6: Small posterior disc protrusion causing mild canal narrowing. No significant foraminal narrowing. C6-C7: Posterior disc protrusion and uncovertebral spurring cause mild to moderate canal narrowing with mild left and moderate right foraminal narrowing. C7-T1: Combination of posterior disc protrusion and facet hypertrophy cause mild to moderate canal narrowing. Along with uncovertebral spurring there is moderate right mild left foraminal narrowing. IMPRESSION: 1. Multilevel spondylotic changes of the cervical spine, as above. 2. Approximately 2.4 cm T2 hyperintense nodule in the right lobe of the thyroid gland. Recommend follow-up dedicated nonemergent thyroid ultrasound. Electronically signed by: Leno Tinsley On 08/31/2020 18:11:40 PM
== END ==
LOC: M RAD 17:07
PROVIDERS: ATTEND Physician Assistant
DX: M50.30 Other cervical disc degeneration, unspecified cervical region (principal); M50.222 Other cervical disc displacement at C5-C6 level; M50.223 Other cervical disc displacement at C6-C7 level; M50.23 Other cervical disc displacement, cervicothoracic region; M47.812 Spondylosis without myelopathy or radiculopathy, cervical region; E04.9 Nontoxic goiter, unspecified

== ENCOUNTER → 2020-11-27 | Outpatient (REF) | payer OTHER ==
[~2020-11-27] MED LIST changes: +OMEP40CA4; -OMEP40CA97
[2020-11-27 16:56] LABS: CHOLESTEROL RISK RATIO 2.83 (<5)
[2020-11-27 17:02] LABS: TOTAL 25(OH) VITAMIN D 35.7 NG/ML (30.0-100.0)
== END ==
LOC: M SFHCCLAY 11:14
PROVIDERS: ATTEND Nurse Practitioner Family
DX: E78.5 Hyperlipidemia, unspecified (principal); E55.9 Vitamin D deficiency, unspecified

== ENCOUNTER → 2021-05-24 | Outpatient (REF) | payer OTHER ==
[~2021-05-24] MED LIST changes: -FLUC150T; +FLUC150T9; +LOSA100T45; -LOSA100T50
[2021-05-24 16:28] LABS: BASO # 0.1 10^3/uL (0.0-0.2); BASO % 0.8 % (0.0-1.0); EOS # 0.2 10^3/uL (0.0-0.5); EOS % 2.5 % (0.0-3.0); HEMATOCRIT 36.3 % (36.0-47.0); HEMOGLOBIN 11.6 g/dl (12.0-15.5); LYMPH # 2.8 10^3/uL (1.5-5.0); LYMPH % 35.4 % (24.0-44.0); MEAN CORPUSCULAR HEMOGLOBIN 29.1 pg (27.0-33.0); MEAN CORPUSCULAR VOLUME 91.2 fl (80.0-96.0); MONO # 0.8 10^3/uL (0.0-0.8); MONO % 10.2 % (2.0-8.0); NEUTROPHILS % 50.7 % (36.0-66.0); PLATELET COUNT, AUTOMATED 280 10^3/uL (150-450); RED BLOOD COUNT 3.98 10^6/uL (4.00-5.40); WHITE BLOOD COUNT 7.9 10^3/uL (4.0-10.0)
[2021-05-24 20:41] LABS: ALBUMIN 3.4 GM/DL (3.2-5.2); ALT/SGPT 25 U/L (12-78); BILIRUBIN,TOTAL 0.4 MG/DL (0.2-1.0); BLOOD UREA NITROGEN 16 MG/DL (7-18); CALCIUM LEVEL 8.7 MG/DL (8.8-10.2); CARBON DIOXIDE LEVEL 27 MEQ/L (21-32); CHLORIDE LEVEL 110 MEQ/L (98-107); CHOLESTEROL LEVEL 137 MG/DL (<200); CREATININE FOR GFR 0.59 MG/DL (0.55-1.30); GLOMERULAR FILTRATION RATE > 60.0 (>45); GLUCOSE, FASTING 102 MG/DL (70-100); HDL CHOLESTEROL 55 MG/DL (>40); LDL CHOLESTEROL 64 MG/DL (<100); NON-HDL-C 82 MG/DL; POTASSIUM SERUM 4.9 MEQ/L (3.5-5.1); SODIUM LEVEL 142 MEQ/L (136-145); TOTAL PROTEIN 6.3 GM/DL (6.4-8.2); TRIGLYCERIDES LEVEL 90 MG/DL (<150)
== END ==
LOC: M SFHCCLAY 10:48
PROVIDERS: ATTEND Nurse Practitioner Family
DX: I10 Essential (primary) hypertension (principal); E78.5 Hyperlipidemia, unspecified

== ENCOUNTER → 2021-06-16 | Outpatient (CLI) | payer OTHER ==
[~2021-06-16] MED LIST changes: +FLUC150T; -FLUC150T9; -LOSA100T45; +LOSA100T50
--- NOTE | 2021-06-16 14:21 | REP ---
INDICATION: LUNG CA SCREENING. COMPARISON: Multiple the latest 05/22/2020 also low-dose screening CT of the lungs TECHNIQUE: Axial noncontrast images from the thoracic inlet to the upper abdomen using low-dose lung screening technique (LDCT). As per the protocol only lung window images were sent to the read station for interpretation. FINDINGS: There is an unchanged 4 mm size nodule in the left lower lobe which has remained unchanged since 05/12/2016 lung base images obtained during abdominal CT. There is an incidental calcified granuloma in the inferior anterior right upper lobe. No new abnormal nodules, masses, or opacities have developed. Grossly, the mediastinum and pulmonary lee ann are stable. Grossly, the imaged upper abdomen and imaged osseous structures are stable. IMPRESSION: Stable lung rads category [address] low-dose screening CT of the lungs. Follow-up as per the revised Fleischner society criteria. <Electronically signed by Gelacio Echevarria > 06/16/21 [id number]
== END ==
LOC: M RAD 12:41
PROVIDERS: ATTEND Physician Assistant
DX: Z12.2 Encounter for screening for malignant neoplasm of respiratory organs (principal); F17.218 Nicotine dependence, cigarettes, with other nicotine-induced disorders; R91.1 Solitary pulmonary nodule; J84.10 Pulmonary fibrosis, unspecified

== ENCOUNTER → 2021-07-02 | Outpatient (CLI) | payer OTHER ==
[~2021-07-02] MED LIST changes: +LOSA100T45; -LOSA100T50
== END ==
LOC: M WUC 13:51
PROVIDERS: ATTEND Physical Medicine & Rehabilitation
DX: M25.532 Pain in left wrist (principal)

== ENCOUNTER → 2021-08-09 | Outpatient (CLI) | payer OTHER ==
[~2021-08-09] MED LIST changes: -FLUC150T; +FLUC150T9
== END ==
LOC: M RAD 06:37
PROVIDERS: ATTEND Physical Medicine & Rehabilitation
DX: M54.12 Radiculopathy, cervical region (principal)

== ENCOUNTER → 2021-09-23 | Outpatient (CLI) | payer OTHER ==
[2021-09-23 16:20] LABS: AMPHETAMINES URINE REFLEX NEGATIVE (NEGATIVE); BARBITURATES URINE REFLEX NEGATIVE (NEGATIVE); BENZODIAZEPINES URINE REFLEX NEGATIVE (NEGATIVE); CANNABINOIDS URINE REFLEX NEGATIVE (NEGATIVE); COCAINE METABOLITE URINE REFLE NEGATIVE (NEGATIVE); METHADONE URINE REFLEX NEGATIVE (NEGATIVE); PHENCYCLIDINE URINE REFLEX NEGATIVE (NEGATIVE)
== END ==
LOC: M WUC 14:17
PROVIDERS: ATTEND Physical Medicine & Rehabilitation
DX: M43.16 Spondylolisthesis, lumbar region (principal)

== ENCOUNTER → 2021-11-23 | Outpatient (REF) | payer OTHER ==
[2021-11-23 15:52] LABS: HEMATOCRIT 35.9 % (36.0-47.0); HEMOGLOBIN 11.7 g/dl (12.0-15.5); MEAN CORPUSCULAR HEMOGLOBIN 30.2 pg (27.0-33.0); MEAN CORPUSCULAR HGB CONC 32.6 g/dl (32.0-36.5); MEAN CORPUSCULAR VOLUME 92.5 fl (80.0-96.0); PLATELET COUNT, AUTOMATED 273 10^3/uL (150-450); RED BLOOD COUNT 3.88 10^6/uL (4.00-5.40); WHITE BLOOD COUNT 8.4 10^3/uL (4.0-10.0)
[2021-11-23 17:26] LABS: BLOOD UREA NITROGEN 13 MG/DL (7-18); CALCIUM LEVEL 9.4 MG/DL (8.8-10.2); CARBON DIOXIDE LEVEL 27 MEQ/L (21-32); CHLORIDE LEVEL 105 MEQ/L (98-107); CHOLESTEROL LEVEL 135 MG/DL (<200); CHOLESTEROL RISK RATIO 3.648 (<5); CREATININE FOR GFR 0.65 MG/DL (0.55-1.30); GLOMERULAR FILTRATION RATE > 60.0 (>45); GLUCOSE, FASTING 101 MG/DL (70-100); HDL CHOLESTEROL 37 MG/DL (>40); LDL CHOLESTEROL 76 MG/DL (<100); NON-HDL-C 98 MG/DL; POTASSIUM SERUM 4.6 MEQ/L (3.5-5.1); SODIUM LEVEL 136 MEQ/L (136-145); TRIGLYCERIDES LEVEL 108 MG/DL (<150)
== END ==
LOC: M SFHCCLAY 10:11
PROVIDERS: ATTEND Nurse Practitioner Family
DX: I25.10 Atherosclerotic heart disease of native coronary artery without angina pectoris (principal)

== ENCOUNTER → 2022-01-19 | Outpatient (CLI) | payer OTHER | LOC: M RAD 12:46 | PROVIDERS: ATTEND Physician Assistant | DX: M79.606 Pain in leg, unspecified (principal); I70.203 Unspecified atherosclerosis of native arteries of extremities, bilateral legs ==

== ENCOUNTER → 2022-01-20 | Outpatient (CLI) | payer OTHER ==
[~2022-01-20] MED LIST changes: +ACET-645 PO; -AMLO1TAB24; +AMLO1TAB24 PO; +ASPI-226 PO; -ASPI-546; +ASPI-546 PO; -ATOR40TA75; +ATOR40TA75 PO; +CARV6.25 PO; -CLOP75TA2; +CLOP75TA2 PO; +ERGO500029 PO; +FAMO40TA3 PO; +FLUTISP; +INCR1INH; +LANS15CA PO; -LORA-243; +LORA-243 PO; -LOSA100T45; +LOSA100T45 PO; +METH-1164 PO; +MONT10TA97 PO; -NITR0.4S14; +NITR0.4S14 SL; +PROAAER10; +VENTAER INH; -ZOLP10TA2; +ZOLP10TA2 PO
== END ==
LOC: M LABSMTC 09:02
PROVIDERS: ATTEND Anesthesiology
DX: Z01.812 Encounter for preprocedural laboratory examination (principal); Z20.822 Contact with and (suspected) exposure to COVID-19

== ENCOUNTER 2022-01-25 10:52 | Day surgery (SDC) | payer OTHER ==
[~2022-01-25] VITALS: Ht 147.3 cm; Wt 59.0 kg
[~2022-01-25 10:52] MED LIST changes: +NS 1,000 ML IV ONE
[2022-01-25] MEDS ORDERED: fentaNYL 100 MCG/2 ML INJECTION As Ordered ONE (12:49)
[2022-01-25] MEDS ORDERED: LIDOCAINE 2% 100MG/5ML SDV (FOR ANES.) As Ordered ONE (13:14)
[2022-01-25] MEDS ORDERED: propofoL 200 MG/20 ML VIAL As Ordered ONE (13:14)
[2022-01-25 13:30] VITALS: BP 197/91
== END 2022-01-25 13:37 | disposition home or self-care (01) ==
LOC: M OPP 10:52
PROVIDERS: ATTEND Internal Medicine Gastroenterology
DX: K63.5 Polyp of colon (principal); K57.30 Diverticulosis of large intestine without perforation or abscess without bleeding; K64.8 Other hemorrhoids; Z80.0 Family history of malignant neoplasm of digestive organs; Z86.010 Personal history of colon polyps; Z09 Encounter for follow-up examination after completed treatment for conditions other than malignant neoplasm; K21.00 Gastro-esophageal reflux disease with esophagitis, without bleeding; I10 Essential (primary) hypertension; I73.9 Peripheral vascular disease, unspecified; J45.909 Unspecified asthma, uncomplicated; F17.200 Nicotine dependence, unspecified, uncomplicated; E78.5 Hyperlipidemia, unspecified; G43.909 Migraine, unspecified, not intractable, without status migrainosus; Z79.52 Long term (current) use of systemic steroids; Z79.82 Long term (current) use of aspirin; Z79.899 Other long term (current) drug therapy; Z88.1 Allergy status to other antibiotic agents; Z88.6 Allergy status to analgesic agent; Z86.74 Personal history of sudden cardiac arrest; Z80.3 Family history of malignant neoplasm of breast
CPT/HCPCS: 43235; 45385; 88305; J3010

== ENCOUNTER → 2022-05-02 | Outpatient (CLI) | payer MEDICARE, OTHER ==
[~2022-05-02] MED LIST changes: -NS 1,000 ML IV ONE
[2022-05-02 13:25] LABS: BLOOD UREA NITROGEN 14 MG/DL (9-23); CREATININE FOR GFR 0.67 MG/DL (0.55-1.30); GLOMERULAR FILTRATION RATE > 60.0 (>45)
== END ==
LOC: M WUC 09:16
PROVIDERS: ATTEND Surgery Vascular Surgery
DX: I73.9 Peripheral vascular disease, unspecified (principal)

== ENCOUNTER → 2022-05-03 | Outpatient (CLI) | payer MEDICARE, OTHER ==
[~2022-05-03] MED LIST changes: +ISOVUE-370 76% 100ML VIAL As Ordered ONE
== END ==
LOC: M RAD 14:10
PROVIDERS: ATTEND Surgery Vascular Surgery
DX: I70.213 Atherosclerosis of native arteries of extremities with intermittent claudication, bilateral legs (principal); I70.0 Atherosclerosis of aorta; K57.90 Diverticulosis of intestine, part unspecified, without perforation or abscess without bleeding; K76.89 Other specified diseases of liver
CPT/HCPCS: 75635; Q9967

== ENCOUNTER → 2022-07-20 | Outpatient (REF) | payer MEDICARE ==
[~2022-07-20] MED LIST changes: +FLUT50SP17; -FLUTISP; -ISOVUE-370 76% 100ML VIAL As Ordered ONE
[2022-07-20 18:48] LABS: ALBUMIN 3.5 G/DL (3.2-5.2); ALKALINE PHOSPHATASE 38 U/L (46-116); ALT/SGPT 22 U/L (7.0-40); AST/SGOT 22 U/L (<34); BILIRUBIN,TOTAL 0.5 MG/DL (0.3-1.2); BLOOD UREA NITROGEN 11 MG/DL (9-23); CALCIUM LEVEL 8.8 MG/DL (8.3-10.6); CARBON DIOXIDE LEVEL 29 MMOL/L (20-31); CHLORIDE LEVEL 102 MMOL/L (98-107); CHOLESTEROL LEVEL 141 MG/DL (<200); CHOLESTEROL RISK RATIO 2.63 (<5); GLOMERULAR FILTRATION RATE > 60.0 (>45); GLUCOSE, FASTING 107 MG/DL (74-106); HDL CHOLESTEROL 53.6 MG/DL (>40); LDL CHOLESTEROL 70.2 MG/DL (<100); NON-HDL-C 87 MG/DL; POTASSIUM SERUM 4.8 MMOL/L (3.5-5.1); SODIUM LEVEL 136 MMOL/L (136-145); TOTAL PROTEIN 5.9 G/DL (5.7-8.2); TRIGLYCERIDES LEVEL 86 MG/DL (<150)
== END ==
LOC: M SFHCCLAY 11:09
PROVIDERS: ATTEND Nurse Practitioner Family
DX: I10 Essential (primary) hypertension (principal); I25.10 Atherosclerotic heart disease of native coronary artery without angina pectoris; F17.200 Nicotine dependence, unspecified, uncomplicated

== ENCOUNTER → 2023-03-21 | Outpatient (REF) | payer MEDICARE, OTHER ==
[~2023-03-21] MED LIST changes: -LOSA100T45 PO; +LOSA100T46 PO
[2023-03-21 16:43] LABS: ALBUMIN 3.9 G/DL (3.2-5.2); ALKALINE PHOSPHATASE 44 U/L (46-116); ALT/SGPT 31 U/L (7.0-40); AST/SGOT 25 U/L (<34); BILIRUBIN,TOTAL 0.5 MG/DL (0.3-1.2); BLOOD UREA NITROGEN 11 MG/DL (9-23); CALCIUM LEVEL 9.1 MG/DL (8.3-10.6); CARBON DIOXIDE LEVEL 27 MMOL/L (20-31); CHLORIDE LEVEL 107 MMOL/L (98-107); CHOLESTEROL LEVEL 172 MG/DL (<200); CHOLESTEROL RISK RATIO 2.37 (<5); CREATININE FOR GFR 0.52 MG/DL (0.55-1.30); GLOMERULAR FILTRATION RATE > 60.0 (>45); GLUCOSE, FASTING 113 MG/DL (74-106); HDL CHOLESTEROL 72.3 MG/DL (>40); LDL CHOLESTEROL 79.1 MG/DL (<100); NON-HDL-C 99.7 MG/DL; POTASSIUM SERUM 4.2 MMOL/L (3.5-5.1); SODIUM LEVEL 138 MMOL/L (136-145); TOTAL PROTEIN 6.7 G/DL (5.7-8.2); TRIGLYCERIDES LEVEL 103 MG/DL (<150)
== END ==
LOC: M WUC 16:16
PROVIDERS: ATTEND Nurse Practitioner Family
DX: I10 Essential (primary) hypertension (principal); I25.10 Atherosclerotic heart disease of native coronary artery without angina pectoris

== ENCOUNTER → 2024-02-13 | Outpatient (CLI) | payer MEDICARE, OTHER ==
[~2024-02-13] MED LIST changes: -FLUT50SP17; +FLUTISP
== END ==
LOC: M RAD 09:38
PROVIDERS: ATTEND Physician Assistant
DX: Z12.2 Encounter for screening for malignant neoplasm of respiratory organs (principal); F17.218 Nicotine dependence, cigarettes, with other nicotine-induced disorders; R91.1 Solitary pulmonary nodule; J84.10 Pulmonary fibrosis, unspecified; I70.0 Atherosclerosis of aorta; I25.10 Atherosclerotic heart disease of native coronary artery without angina pectoris

== ENCOUNTER → 2024-05-14 | Outpatient (CLI) | payer MEDICARE, OTHER ==
[2024-05-14 17:12] LABS: HEMOGLOBIN A1c 5.7 % (4.0-6.0)
[2024-05-14 17:24] LABS: ALBUMIN 3.6 G/DL (3.2-5.2); ALKALINE PHOSPHATASE 50 U/L (35-104); ALT/SGPT 28 U/L (7.0-40); AST/SGOT 22 U/L (<34); BILIRUBIN,TOTAL 0.2 MG/DL (0.3-1.2); BLOOD UREA NITROGEN 21 MG/DL (9-23); CALCIUM LEVEL 9.4 MG/DL (8.3-10.6); CARBON DIOXIDE LEVEL 26 MMOL/L (20-31); CHLORIDE LEVEL 103 MMOL/L (98-107); CHOLESTEROL LEVEL 175 MG/DL (<200); CHOLESTEROL RISK RATIO 3.05 (<5); CREATININE FOR GFR 0.63 MG/DL (0.55-1.30); GLOMERULAR FILTRATION RATE > 60.0 (>45); GLUCOSE, FASTING 108 MG/DL (74-106); HDL CHOLESTEROL 57.3 MG/DL (>40); LDL CHOLESTEROL 96.3 MG/DL (<100); NON-HDL-C 117.7 MG/DL; POTASSIUM SERUM 5.2 MMOL/L (3.5-5.1); SODIUM LEVEL 136 MMOL/L (136-145); TOTAL PROTEIN 6.7 G/DL (5.7-8.2); TRIGLYCERIDES LEVEL 107 MG/DL (<150)
== END ==
LOC: M WUC 13:47
PROVIDERS: ATTEND Nurse Practitioner Family
DX: I10 Essential (primary) hypertension (principal); E55.9 Vitamin D deficiency, unspecified; K21.9 Gastro-esophageal reflux disease without esophagitis; I25.10 Atherosclerotic heart disease of native coronary artery without angina pectoris; E78.5 Hyperlipidemia, unspecified; Z79.899 Other long term (current) drug therapy

== ENCOUNTER → 2024-06-18 | Outpatient (CLI) | payer MEDICARE, OTHER | LOC: M WHC 13:31 | PROVIDERS: ATTEND Nurse Practitioner Family | DX: Z12.31 Encounter for screening mammogram for malignant neoplasm of breast (principal); Z78.0 Asymptomatic menopausal state; M85.89 Other specified disorders of bone density and structure, multiple sites; R92.313 Mammographic fatty tissue density, bilateral breasts ==

== ENCOUNTER → 2024-08-13 | Outpatient (CLI) | payer MEDICARE | LOC: M CARPUL 15:57 | PROVIDERS: ATTEND Nurse Practitioner Family | DX: I25.10 Atherosclerotic heart disease of native coronary artery without angina pectoris (principal); I50.30 Unspecified diastolic (congestive) heart failure; I35.8 Other nonrheumatic aortic valve disorders; I08.0 Rheumatic disorders of both mitral and aortic valves; I37.1 Nonrheumatic pulmonary valve insufficiency ==

== ENCOUNTER → 2024-08-16 | Outpatient (CLI) | payer MEDICARE ==
[2024-08-16 15:38] LABS: HEMATOCRIT 38.6 % (36.0-47.0); HEMOGLOBIN 12.7 g/dl (12.0-15.5); MEAN CORPUSCULAR HEMOGLOBIN 29.6 pg (27.0-33.0); MEAN CORPUSCULAR HGB CONC 32.9 g/dl (32.0-36.5); PLATELET COUNT, AUTOMATED 271 10^3/uL (150-450); RED BLOOD COUNT 4.29 10^6/uL (4.00-5.40); WHITE BLOOD COUNT 8.8 10^3/uL (4.0-10.0)
[2024-08-16 15:59] LABS: ALBUMIN 3.7 G/DL (3.2-5.2); ALKALINE PHOSPHATASE 50 U/L (35-104); ALT/SGPT 29 U/L (7.0-40); AST/SGOT 26 U/L (<34); BILIRUBIN,TOTAL 0.3 MG/DL (0.3-1.2); BLOOD UREA NITROGEN 11 MG/DL (9-23); CALCIUM LEVEL 9.1 MG/DL (8.3-10.6); CARBON DIOXIDE LEVEL 26 MMOL/L (20-31); CHLORIDE LEVEL 106 MMOL/L (98-107); CHOLESTEROL LEVEL 144 MG/DL (<200); CHOLESTEROL RISK RATIO 3.38 (<5); CREATININE FOR GFR 0.57 MG/DL (0.55-1.30); GLOMERULAR FILTRATION RATE > 60.0 (>45); GLUCOSE, FASTING 103 MG/DL (74-106); HDL CHOLESTEROL 42.6 MG/DL (>40); NON-HDL-C 101.4 MG/DL; POTASSIUM SERUM 4.7 MMOL/L (3.5-5.1); SODIUM LEVEL 141 MMOL/L (136-145); TOTAL PROTEIN 6.9 G/DL (5.7-8.2); TRIGLYCERIDES LEVEL 97 MG/DL (<150)
== END ==
LOC: M LAB 13:38
PROVIDERS: ATTEND Physician Assistant
DX: I25.10 Atherosclerotic heart disease of native coronary artery without angina pectoris (principal); I10 Essential (primary) hypertension; E78.2 Mixed hyperlipidemia

== ENCOUNTER → 2024-10-22 | Outpatient (CLI) | payer MEDICARE | LOC: M RAD 12:21 | PROVIDERS: ATTEND Physician Assistant | DX: I73.9 Peripheral vascular disease, unspecified (principal) ==

== ENCOUNTER → 2025-01-17 | Outpatient (CLI) | payer MEDICARE ==
[~2025-01-17] MED LIST changes: +ISOVUE-370 76% 100 ML VIAL As Ordered ONE
== END ==
LOC: M RAD 08:27
PROVIDERS: ATTEND Surgery
DX: I73.9 Peripheral vascular disease, unspecified (principal)
CPT/HCPCS: 75635; 82565; Q9967

== ENCOUNTER → 2025-03-31 | Outpatient (CLI) | payer MEDICARE ==
[~2025-03-31] MED LIST changes: -ISOVUE-370 76% 100 ML VIAL As Ordered ONE; +ZOLP10TA11 PO; -ZOLP10TA2 PO
== END ==
LOC: M RAD 14:53
PROVIDERS: ATTEND Physician Assistant
DX: Z12.2 Encounter for screening for malignant neoplasm of respiratory organs (principal); F17.218 Nicotine dependence, cigarettes, with other nicotine-induced disorders

== ENCOUNTER 2025-05-01 10:09 | Inpatient (IN) | payer MEDICARE ==
[2025-05-01] VITALS (46 sets, daily range): BP systolic 65–119; BP diastolic 39–65; TEMP 97.1–97.4; O2SAT 91–100
[~2025-05-01] VITALS: Ht 149.9 cm; Wt 64.0 kg
[~2025-05-01 10:09] MED LIST changes: -INCR1INH; +INCR1INH INH
[2025-05-01] MEDS: LIDOCAINE 2% 5 ML JELLY UROJET TOP ONE ×2 (10:25→10:30)
[2025-05-01] MEDS: NS (Normal Saline) 0.9% 1,000 ML IV ONE ×2 (10:30→10:52)
[2025-05-01] MEDS: NOREPINEPHRINE 4MG IN D5 250ML 4 MG in IV 1 EA IV SCH ×2 (10:48→14:43)
[2025-05-01] MEDS: PIPERACILLIN/TAZOBACTAM SOD 4.5 GM in DEXTROSE 5% (D5W) ADV/MINI-BAG 50 ML IV ONE (11:06)
[2025-05-01] MEDS: HYDROCORTISONE 100 MG/2 ML VIAL IV ONE (11:07)
[2025-05-01 11:08] LABS: BASO # 0.1 10^3/uL (0.0-0.2); BASO % 0.4 % (0.0-1.0); EOS # 0.1 10^3/uL (0.0-0.5); EOS % 0.7 % (0.0-3.0); LYMPH # 1.5 10^3/uL (1.5-5.0); LYMPH % 9.3 % (24.0-44.0); MONO % 18.9 % (2.0-8.0); NEUTROPHILS # 11.5 10^3/uL (1.5-8.5); NEUTROPHILS % 70.0 % (36.0-66.0); PLATELET COUNT, AUTOMATED 334 10^3/uL (150-450)
[2025-05-01 11:24] LABS: MONO # 3.1 10^3/uL (0.0-0.8)
[2025-05-01 11:26] LABS: ALT/SGPT 80 U/L (7.0-40); AST/SGOT 111 U/L (<34); CALCIUM LEVEL 7.5 MG/DL (8.3-10.6); CARBON DIOXIDE LEVEL 20 MMOL/L (20-31); CHLORIDE LEVEL 100 MMOL/L (98-107); CK-MB VALUE MASS < 1.0 NG/ML (<3.6); CREATININE FOR GFR 1.97 MG/DL (0.55-1.30); GLOMERULAR FILTRATION RATE 27.2 (>45); POTASSIUM SERUM 3.8 MMOL/L (3.5-5.1); SODIUM LEVEL 132 MMOL/L (136-145)
[2025-05-01 11:33] LABS: INR 1.08
[2025-05-01 11:34] LABS: ABG BASE EXCESS -8.9 (-2.0-2.0); ABG HCO3 16.8 MMOL/L (22.0-26.0); ABG O2 SATURATION 98.2 % (95.0-99.0); ABG PARTIAL PRESSURE CO2 35.8 mmHg (35.0-45.0); ABG PARTIAL PRESSURE O2 117.8 mmHg (75.0-100.0); ABG STANDARD HCO3 17.2 MMOL/L. (22.0-26.0); ABG TOTAL CO2 17.9 MMOL/L (23.0-31.0); ABG pH (ARTERIAL) 7.290 UNITS (7.350-7.450)
[2025-05-01 11:44] LABS: KETONE, URINE AUTO RFX TRACE mg/dL (NEGATIVE); LEUKOCYTE ESTERASE UR AUTO RFX NEGATIVE (NEGATIVE); MUCUS, URINE RFX SMALL (NEGATIVE); NITRITE, URINE AUTO RFX NEGATIVE (NEGATIVE); RBC, URINE AUTO RFX 33 /HPF (0-3); SQUAM EPITHELIAL CELL UR AURFX 2 /HPF (0-6)
[2025-05-01 11:55] LABS: WBC, URINE AUTO RFX 17 /HPF (0-3)
[2025-05-01] MEDS ORDERED: DEXI60CA2 PO (11:55)
[2025-05-01] MEDS ORDERED: FLUT1BLS6 INH (11:55)
[2025-05-01] MEDS ORDERED: BENZ200C70 PO (11:55)
[2025-05-01] MEDS ORDERED: DOCU100C17 PO (11:55)
[2025-05-01] MEDS ORDERED: EZET10TA57 PO (11:55)
[2025-05-01] MEDS ORDERED: CETI-24 PO (11:55)
[2025-05-01] MEDS ORDERED: LIDO5CRE6 TOP (11:55)
[2025-05-01] MEDS ORDERED: CEFD1CAP9 PO (11:55)
[2025-05-01] MEDS ORDERED: ATOR80TA59 PO (11:55)
[2025-05-01] MEDS ORDERED: GABA-1172 PO (11:55)
[2025-05-01] MEDS ORDERED: HOME MED LIST COMPLETE! XX SCH (12:00)
[2025-05-01 12:13] LABS: CK-MB VALUE MASS < 1.0 NG/ML (<3.6)
[2025-05-01 12:15] LABS: CPK CREATINE PHOSPHOKINASE 34 U/L (34-145)
[2025-05-01] MEDS: MULTIVITAMIN -ADULT INJECTION 10 ML, THIAMINE INJection 100 MG, FOLIC ACID 1 MG in NS (... IV ONE (12:18)
[2025-05-01 12:21] LABS: SALICYLATE LEVEL < 3.0 MG/DL (<30)
[2025-05-01 12:29] LABS: C REACTIVE PROTEIN QUANTITATIV 21.78 MG/DL (<1.0); CPK CREATINE PHOSPHOKINASE 30 U/L (34-145); ETHYL ALCOHOL (ETHANOL) < 0.003 % (0.000-0.010)
[2025-05-01] MEDS: VASOPRESSIN IN 0.9 % NACL 20 UNIT in IV 1 EA IV SCH (14:15)
[2025-05-01] MEDS ORDERED: NITROGLYCERIN 0.4 MG SUBL TABLET SL PRN (14:55)
[2025-05-01] MEDS ORDERED: BENZONATATE 100 MG CAPSULE PO PRN (14:55)
[2025-05-01] MEDS: GABAPENTIN 300 MG CAP PO SCH (17:14)
[2025-05-01] MEDS: CLOPIDOGREL 75 MG TAB PO SCH (17:14)
[2025-05-01] MEDS: ATORVASTATIN 20 MG TAB PO SCH (17:14)
[2025-05-01] MEDS: PIPERACILLIN/TAZOBACTAM SOD 4.5 GM in DEXTROSE 5% (D5W) ADV/MINI-BAG 50 ML IV SCH (17:14)
[2025-05-01] MEDS ORDERED: NICOTINE POLACRILEX 2 MG GUM PO PRN (17:25)
[2025-05-01] MEDS: SYMBICORT 160/4.5MCG INHALER 6GM INH SCH (20:00)
[2025-05-01] MEDS: ACETAMINOPH W/CODEINE #3 TAB UD PO PRN (20:47)
[2025-05-01] MEDS: LR 1,000 ML IV SCH (20:47)
[2025-05-01] MEDS: DOCUSATE SODIUM 100 MG CAPSULE PO SCH (20:48)
[2025-05-01] MEDS: HEPARIN SOD 5000 UNITS/ML 1 ML VIAL/SYRINGE SC SCH (22:25)
[2025-05-02] VITALS (61 sets, daily range): BP systolic 81–146; BP diastolic 44–84; TEMP 97–103.8; O2SAT 88–100
[2025-05-02] MEDS: TIOTROPIUM BROM 2.5MCG/ACTUATION 4GM INH INH SCH (07:18)
[2025-05-02] MEDS: K-PHOS ORIGINAL (POT.ACID PHOSPHATE) 500 MG TAB PO SCH (09:00)
[2025-05-02] MEDS: CETIRIZINE 10 MG TAB PO SCH (09:42)
[2025-05-02] MEDS: ASPIRIN 81 MG ENTERIC TABLET PO SCH (09:42)
[2025-05-02] MEDS: MONTELUKAST 10 MG TAB PO SCH (09:43)
[2025-05-02] MEDS: PANTOPRAZOLE 40MG TAB PO SCH (09:43)
[2025-05-02 10:16] LABS: ALT/SGPT 88.0 U/L (7.0-40); AST/SGOT 107.0 U/L (<34); CALCIUM LEVEL 7.5 MG/DL (8.3-10.6); CARBON DIOXIDE LEVEL 20.0 MMOL/L (20-31); CHLORIDE LEVEL 106.0 MMOL/L (98-107); CREATININE FOR GFR 0.86 MG/DL (0.55-1.30); GLOMERULAR FILTRATION RATE 73.5 (>45); MAGNESIUM LEVEL 1.6 MG/DL (1.8-2.4); POTASSIUM SERUM 3.4 MMOL/L (3.5-5.1); SODIUM LEVEL 135.0 MMOL/L (136-145)
[2025-05-02 10:34] LABS: BASO # 0.1 10^3/uL (0.0-0.2); BASO % 0.3 % (0.0-1.0); EOS # 0.1 10^3/uL (0.0-0.5); EOS % 0.5 % (0.0-3.0); LYMPH # 1.6 10^3/uL (1.5-5.0); LYMPH % 8.9 % (24.0-44.0); MONO % 16.1 % (2.0-8.0); NEUTROPHILS # 13.0 10^3/uL (1.5-8.5); NEUTROPHILS % 73.6 % (36.0-66.0); PLATELET COUNT, AUTOMATED 358 10^3/uL (150-450)
[2025-05-02 10:40] LABS: MONO # 2.8 10^3/uL (0.0-0.8)
[2025-05-02] MEDS: MAGNESIUM OXIDE 400 MG TAB PO ONE (13:27)
[2025-05-02] MEDS: POTASSIUM CHLORIDE 10% LIQ 20MEQ/15ML UDC PO ONE (13:27)
[2025-05-02] MEDS ORDERED: KETOROLAC 30 MG/ML 1 ML VIAL As Ordered ONE (15:38)
[2025-05-02] MEDS: KETOROLAC 30 MG/ML 1 ML VIAL IV ONE ×2 (15:43→22:09)
[2025-05-02] MEDS ORDERED: ISOVUE-370 76% 100 ML VIAL As Ordered ONE (18:03)
[2025-05-02] MEDS: VANCOMYCIN HCL 1,250 MG, VIAL MATE ADAPTER 1 EACH in NS 250 ML IV ONE (18:32)
[2025-05-02] MEDS ORDERED: AZITHROMYCIN 250 MG TABLET PO SCH (21:00)
[2025-05-02] MEDS: MAGNESIUM OXIDE 400 MG TAB PO SCH (22:41)
[2025-05-02 22:43] LABS: ABG BASE EXCESS -4.8 (-2.0-2.0); ABG HCO3 18.7 MMOL/L (22.0-26.0); ABG O2 SATURATION 96.8 % (95.0-99.0); ABG PARTIAL PRESSURE CO2 29.1 mmHg (35.0-45.0); ABG PARTIAL PRESSURE O2 87.4 mmHg (75.0-100.0); ABG STANDARD HCO3 20.5 MMOL/L. (22.0-26.0); ABG TOTAL CO2 19.6 MMOL/L (23.0-31.0); ABG pH (ARTERIAL) 7.426 UNITS (7.350-7.450)
[2025-05-02] MEDS: NS 500 ML IV ONE (23:06)
[2025-05-02] MEDS: IPRATROPIUM 0.5 MG/ALBUTEROL 2.5 MG INH SOL UD 3 ML NEB ONE (23:31)
[2025-05-02] MEDS: MEROPENEM 1 GM in IV 1 EA IV SCH (23:38)
[2025-05-03] VITALS: BP 96/50; TEMP 100.2; O2SAT 93
[2025-05-03 01:00] LABS: C REACTIVE PROTEIN QUANTITATIV 18.17 MG/DL (<1.0)
[2025-05-03] MEDS: IPRATROPIUM 0.5 MG/ALBUTEROL 2.5 MG INH SOL UD 3 ML NEB SCH (01:39)
[2025-05-03] MEDS: VANCOMYCIN HCL 1,000 MG, VIAL MATE ADAPTER 1 EACH in NS 250 ML IV SCH (03:00)
== END 2025-05-03 04:30 | disposition left against medical advice (07) | DRG 871 ==
LOC: M ED 10:09 → M ED INP 14:15 → M ICU 15:40
PROVIDERS: ADMIT Internal Medicine Pulmonary Disease; ATTEND Internal Medicine Pulmonary Disease
PROC: B246ZZZ Ultrasonography of Right and Left Heart (ICD-10-PCS; principal; 2025-05-02)
DX: A41.9 Sepsis, unspecified organism (principal); R65.21 Severe sepsis with septic shock; G93.41 Metabolic encephalopathy; E87.1 Hypo-osmolality and hyponatremia; N17.9 Acute kidney failure, unspecified; K21.9 Gastro-esophageal reflux disease without esophagitis; I25.10 Atherosclerotic heart disease of native coronary artery without angina pectoris; R74.01 Elevation of levels of liver transaminase levels; E83.42 Hypomagnesemia; I73.9 Peripheral vascular disease, unspecified; R68.0 Hypothermia, not associated with low environmental temperature; I25.2 Old myocardial infarction; G47.00 Insomnia, unspecified; M79.605 Pain in left leg; I10 Essential (primary) hypertension; E78.5 Hyperlipidemia, unspecified; F17.210 Nicotine dependence, cigarettes, uncomplicated; Z88.1 Allergy status to other antibiotic agents; Z88.8 Allergy status to other drugs, medicaments and biological substances; Z88.6 Allergy status to analgesic agent; Z79.899 Other long term (current) drug therapy; E87.6 Hypokalemia; Z79.82 Long term (current) use of aspirin; Z95.828 Presence of other vascular implants and grafts; Z95.5 Presence of coronary angioplasty implant and graft; J44.9 Chronic obstructive pulmonary disease, unspecified

== ENCOUNTER 2025-05-04 08:55 | Inpatient (IN) | payer MEDICARE ==
[~2025-05-04] VITALS: Ht 175.3 cm; Wt 70.1 kg
[~2025-05-04 08:55] MED LIST changes: +ATOR80TA59 PO; +BENZ200C70 PO; +CEFD1CAP9 PO; +CETI-24 PO; +DEXI60CA2 PO; +DOCU100C17 PO; +EZET10TA57 PO; +FLUT1BLS6 INH; +GABA-1172 PO; +LIDO5CRE6 TOP
[2025-05-04] MEDS: NS (Normal Saline) 0.9% 1,000 ML IV ONE (09:22)
[2025-05-04] MEDS: ACETAMINOPHEN *IV* 1,000 MG in IV 1 EA IV ONE (09:24)
[2025-05-04] MEDS: PIPERACILLIN/TAZOBACTAM SOD 4.5 GM in DEXTROSE 5% (D5W) ADV/MINI-BAG 50 ML IV ONE (09:25)
[2025-05-04] MEDS: LIDOCAINE 2% 5 ML JELLY UROJET TOP ONE (09:25)
[2025-05-04 09:39] LABS: BASO # 0.1 10^3/uL (0.0-0.2); BASO % 0.2 % (0.0-1.0); EOS # 0.0 10^3/uL (0.0-0.5); EOS % 0.0 % (0.0-3.0); LYMPH # 1.4 10^3/uL (1.5-5.0); LYMPH % 6.3 % (24.0-44.0); MONO % 12.7 % (2.0-8.0); NEUTROPHILS # 17.7 10^3/uL (1.5-8.5); NEUTROPHILS % 78.4 % (36.0-66.0); PLATELET COUNT, AUTOMATED 374 10^3/uL (150-450)
[2025-05-04 09:41] LABS: MONO # 2.9 10^3/uL (0.0-0.8)
[2025-05-04 09:48] LABS: KETONE, URINE AUTO RFX TRACE mg/dL (NEGATIVE); LEUKOCYTE ESTERASE UR AUTO RFX NEGATIVE (NEGATIVE); MUCUS, URINE RFX SMALL (NEGATIVE); NITRITE, URINE AUTO RFX NEGATIVE (NEGATIVE); RBC, URINE AUTO RFX TNTC /HPF (0-3); SQUAM EPITHELIAL CELL UR AURFX 1 /HPF (0-6)
[2025-05-04 09:49] LABS: WBC, URINE AUTO RFX 11 /HPF (0-3)
[2025-05-04 09:55] LABS: INR 1.1
[2025-05-04] MEDS ORDERED: HOME MED LIST COMPLETE! XX SCH (10:00)
[2025-05-04 10:01] LABS: CK-MB VALUE MASS < 1.0 NG/ML (<3.6); ETHYL ALCOHOL (ETHANOL) 0.003 % (0.000-0.010)
[2025-05-04 10:02] LABS: SALICYLATE LEVEL < 3.0 MG/DL (<30)
[2025-05-04 10:03] LABS: CPK CREATINE PHOSPHOKINASE 15 U/L (34-145)
[2025-05-04 10:14] LABS: ALT/SGPT 139 U/L (7.0-40); AST/SGOT 157 U/L (<34); CALCIUM LEVEL 8.5 MG/DL (8.3-10.6); CARBON DIOXIDE LEVEL 20 MMOL/L (20-31); CHLORIDE LEVEL 104 MMOL/L (98-107); CREATININE FOR GFR 0.67 MG/DL (0.55-1.30); GLOMERULAR FILTRATION RATE > 90.0 (>45); POTASSIUM SERUM 3.6 MMOL/L (3.5-5.1); SODIUM LEVEL 136 MMOL/L (136-145)
[2025-05-04 10:15] LABS: C REACTIVE PROTEIN QUANTITATIV 27.95 MG/DL (<1.0)
[2025-05-04] MEDS ORDERED: ISOVUE-370 76% 100 ML VIAL As Ordered ONE (10:31)
[2025-05-04 11:28] LABS: CK-MB VALUE MASS < 1.0 NG/ML (<3.6)
[2025-05-04 11:30] LABS: CPK CREATINE PHOSPHOKINASE < 15 U/L (34-145)
[2025-05-04] MEDS: NS 0.9% IV STA (12:00)
[2025-05-04] MEDS: [UNRECOGNIZED DRUG - OTHER] IV STA (12:00)
[2025-05-04 12:43] LABS: ABG BASE EXCESS -2.4 (-2.0-2.0); ABG HCO3 19.6 MMOL/L (22.0-26.0); ABG O2 SATURATION 95.1 % (95.0-99.0); ABG PARTIAL PRESSURE CO2 25.4 mmHg (35.0-45.0); ABG PARTIAL PRESSURE O2 77.2 mmHg (75.0-100.0); ABG STANDARD HCO3 22.4 MMOL/L. (22.0-26.0); ABG TOTAL CO2 20.4 MMOL/L (23.0-31.0); ABG pH (ARTERIAL) 7.506 UNITS (7.350-7.450)
[2025-05-04] MEDS: VANCOMYCIN HCL 1,250 MG, VIAL MATE ADAPTER 1 EACH in NS 250 ML IV ONE (13:16)
[2025-05-04] MEDS: MULTIVITAMIN -ADULT INJECTION 10 ML, THIAMINE INJection 100 MG, FOLIC ACID 1 MG in NS (... IV ONE (14:08)
[2025-05-04] MEDS ORDERED: VANCOMYCIN HCL 1,000 MG, VIAL MATE ADAPTER 1 EACH in NS 250 ML IV SCH (14:15)
[2025-05-04 15:10] VITALS: BP 151/72; TEMP 98.6; O2SAT 96
[2025-05-04] MEDS: metroNIDAZOLE 500 MG in IV 1 EA IV SCH (15:51)
[2025-05-04 16:31] VITALS: BP 135/64; TEMP 101.1; O2SAT 99
[2025-05-04] MEDS: PANTOPRAZOLE 40MG VIAL IV SCH (16:58)
[2025-05-04] MEDS: ACETAMINOPHEN 325 MG TAB PO PRN (16:59)
[2025-05-04] MEDS: CEFEPIME HCL 2 GM in DEXTROSE 5% (D5W) ADV/MINI-BAG 50 ML IV SCH (16:59)
[2025-05-04] MEDS ORDERED: cefTRIAXone SOD 2 GM in DEXTROSE 5% (D5W) ADV/MINI-BAG 50 ML IV SCH (17:00)
[2025-05-04 19:46] VITALS: BP 145/70; TEMP 99.1; O2SAT 95
[2025-05-04] MEDS: FIDAXOMICIN 200 MG TAB PO SCH (20:27)
[2025-05-04] MEDS: VANCOMYCIN HCL 1,000 MG, VIAL MATE ADAPTER 1 EACH in NS 250 ML IV SCH (20:27)
[2025-05-04] MEDS: HEPARIN SOD 5000 UNITS/ML 1 ML VIAL/SYRINGE SC SCH (20:28)
[2025-05-04] MEDS: MORPHINE 2 MG/ML 1 ML VIAL IV ONE (23:32)
[2025-05-05] VITALS (9 sets, daily range): BP systolic 116–153; BP diastolic 59–72; TEMP 97.2–103.5; O2SAT 93–98
[2025-05-05] MEDS: NS (Normal Saline) 0.9% 1,000 ML IV SCH (00:05)
[2025-05-05] MEDS: KETOROLAC 30 MG/ML 1 ML VIAL IV ONE (05:11)
[2025-05-05 07:11] LABS: BASO # 0.0 10^3/uL (0.0-0.2); BASO % 0.2 % (0.0-1.0); EOS # 0.2 10^3/uL (0.0-0.5); EOS % 1.0 % (0.0-3.0); LYMPH # 0.6 10^3/uL (1.5-5.0); LYMPH % 3.2 % (24.0-44.0); MONO # 2.4 10^3/uL (0.0-0.8); MONO % 12.5 % (2.0-8.0); NEUTROPHILS # 15.5 10^3/uL (1.5-8.5); NEUTROPHILS % 80.5 % (36.0-66.0)
[2025-05-05 07:12] LABS: PLATELET COUNT, AUTOMATED 249 10^3/uL (150-450)
[2025-05-05 07:54] LABS: C REACTIVE PROTEIN QUANTITATIV 31.50 MG/DL (<1.0); CALCIUM LEVEL 6.9 MG/DL (8.3-10.6); CARBON DIOXIDE LEVEL 18 MMOL/L (20-31); CHLORIDE LEVEL 107 MMOL/L (98-107); CREATININE FOR GFR 0.64 MG/DL (0.55-1.30); GLOMERULAR FILTRATION RATE > 90.0 (>45); POTASSIUM SERUM 2.6 MMOL/L (3.5-5.1); SODIUM LEVEL 139 MMOL/L (136-145)
[2025-05-05] MEDS: KCL 40MEQ in NS 1000ML 1,000 ML IV SCH (09:56)
[2025-05-05] MEDS: KCL 10MEQ/100ML SWI (KRUN) 10 MEQ in IV 1 EA IV SCH (09:57)
[2025-05-05 11:43] LABS: ALT/SGPT 115 U/L (7.0-40); AST/SGOT 146 U/L (<34)
[2025-05-05] MEDS: KCL 40MEQ IN D5/NS 1000ML 1,000 ML IV SCH (12:23)
[2025-05-05] MEDS: ONDANSETRON 4MG/2ML VIAL IV PRN (15:19)
[2025-05-05] MEDS: CALCIUM GLUCONATE 1,000 MG in DEXTROSE 5% (D5W) MINI-BAG PLU 100 ML IV ONE (15:19)
[2025-05-05] MEDS: PIPERACILLIN/TAZOBACTAM SOD 4.5 GM in DEXTROSE 5% (D5W) ADV/MINI-BAG 50 ML IV SCH (17:42)
[2025-05-05 23:04] LABS: HIV 1&2 SCREEN NEGATIVE (NEGATIVE)
[2025-05-05] MEDS: FAMOTIDINE 20 MG TAB PO ONE (23:58)
[2025-05-06] VITALS (8 sets, daily range): BP systolic 110–134; BP diastolic 63–71; TEMP 96–101.9; O2SAT 93–95
[2025-05-06 00:04] LABS: HEPATITIS C VIRUS ABY INDEX 0.71 INDEX (<0.8)
[2025-05-06 00:53] LABS: CALCIUM LEVEL 7.7 MG/DL (8.3-10.6); CARBON DIOXIDE LEVEL 15.0 MMOL/L (20-31); CHLORIDE LEVEL 107.0 MMOL/L (98-107); CK-MB VALUE MASS 1.4 NG/ML (<3.6); CPK CREATINE PHOSPHOKINASE 25.0 U/L (34-145); CREATININE FOR GFR 0.75 MG/DL (0.55-1.30); GLOMERULAR FILTRATION RATE 86.7 (>45); MB/CK RELATIVE INDEX 5.6 (< OR =4); POTASSIUM SERUM 3.0 MMOL/L (3.5-5.1); SODIUM LEVEL 136.0 MMOL/L (136-145)
[2025-05-06] MEDS: MORPHINE 2 MG/ML 1 ML VIAL IV ONE (01:43)
[2025-05-06] MEDS: SODIUM CHLORIDE 0.9% INJ 10 ML SYR IV PRN (01:43)
[2025-05-06] MEDS: SODIUM CHLORIDE 0.9% INJ 10 ML SYR IV SCH (06:11)
[2025-05-06 06:24] LABS: PLATELET COUNT, AUTOMATED 186 10^3/uL (150-450)
[2025-05-06 06:47] LABS: ALT/SGPT 77.0 U/L (7.0-40); AST/SGOT 127.0 U/L (<34); CALCIUM LEVEL 7.5 MG/DL (8.3-10.6); CARBON DIOXIDE LEVEL 14.0 MMOL/L (20-31); CHLORIDE LEVEL 110.0 MMOL/L (98-107); CREATININE FOR GFR 0.96 MG/DL (0.55-1.30); GLOMERULAR FILTRATION RATE 64.5 (>45); POTASSIUM SERUM 3.1 MMOL/L (3.5-5.1); SODIUM LEVEL 140.0 MMOL/L (136-145)
[2025-05-06 07:36] LABS: ATYPICAL LYMPH 5 % (0-5); LYMPHOCYTES 2 % (16-44); MONOCYTES 4 % (0-5); MYELOCYTES 1 % (0-0); NEUTROPHILS 82 % (28-66)
[2025-05-06 07:38] LABS: PLATELET ESTIMATE NORMAL (NORMAL)
[2025-05-06] MEDS: IPRATROPIUM 0.5 MG/ALBUTEROL 2.5 MG INH SOL UD 3 ML NEB PRN (11:17)
[2025-05-06] MEDS: LIDOCAINE 5% PATCH TD SCH (12:58)
[2025-05-06] MEDS: FAMOTIDINE 20 MG TAB PO SCH (14:56)
[2025-05-06] MEDS: KETOROLAC 30 MG/ML 1 ML VIAL IV ONE (14:56)
[2025-05-06] MEDS ORDERED: FAMOTIDINE 20 MG TAB PO SCH (21:00)
[2025-05-07] VITALS (28 sets, daily range): BP systolic 76–146; BP diastolic 50–94; TEMP 91.8–97.5; O2SAT 35–96
[2025-05-07 05:28] LABS: BASO # 0.0 10^3/uL (0.0-0.2); BASO % 0.1 % (0.0-1.0); EOS # 0.0 10^3/uL (0.0-0.5); EOS % 0.1 % (0.0-3.0); LYMPH # 1.3 10^3/uL (1.5-5.0); LYMPH % 9.7 % (24.0-44.0); MONO # 1.4 10^3/uL (0.0-0.8); MONO % 10.2 % (2.0-8.0); NEUTROPHILS # 9.5 10^3/uL (1.5-8.5); NEUTROPHILS % 70.3 % (36.0-66.0); PLATELET COUNT, AUTOMATED 114 10^3/uL (150-450)
[2025-05-07 05:58] LABS: ALT/SGPT 65 U/L (7.0-40); AST/SGOT 163 U/L (<34); C REACTIVE PROTEIN QUANTITATIV 32.42 MG/DL (<1.0); CALCIUM LEVEL 8.0 MG/DL (8.3-10.6); CARBON DIOXIDE LEVEL < 10.0 MMOL/L (20-31); CHLORIDE LEVEL 115 MMOL/L (98-107); CREATININE FOR GFR 1.65 MG/DL (0.55-1.30); GLOMERULAR FILTRATION RATE 33.7 (>45); POTASSIUM SERUM 4.3 MMOL/L (3.5-5.1); SODIUM LEVEL 144 MMOL/L (136-145)
[2025-05-07] MEDS: NS (Normal Saline) 0.9% 1,000 ML IV ONE (08:15)
[2025-05-07] MEDS ORDERED: EPINEPHrine HCL INJ 4 MG in D5W 246 ML IV SCH (08:20)
[2025-05-07 08:34] LABS: PLATELET COUNT, AUTOMATED 70 10^3/uL (150-450)
[2025-05-07 08:43] LABS: ABG O2 SATURATION 78.4 % (95.0-99.0)
[2025-05-07 08:50] LABS: ABG BASE EXCESS -28.7 (-2.0-2.0); ABG HCO3 7.9 MMOL/L (22.0-26.0); ABG PARTIAL PRESSURE O2 90.1 mmHg (75.0-100.0); ABG STANDARD HCO3 5.7 MMOL/L. (22.0-26.0); ABG TOTAL CO2 9.7 MMOL/L (23.0-31.0)
[2025-05-07 08:52] LABS: ABG pH (ARTERIAL) 6.733 UNITS (7.350-7.450)
[2025-05-07 08:53] LABS: ABG PARTIAL PRESSURE CO2 60.3 mmHg (35.0-45.0)
[2025-05-07 08:59] LABS: ALT/SGPT 45.0 U/L (7.0-40); AST/SGOT 208.0 U/L (<34); CALCIUM LEVEL 10.2 MG/DL (8.3-10.6); CARBON DIOXIDE LEVEL 18.0 MMOL/L (20-31); CHLORIDE LEVEL 108.0 MMOL/L (98-107); CREATININE FOR GFR 1.7 MG/DL (0.55-1.30); GLOMERULAR FILTRATION RATE 32.5 (>45); MAGNESIUM LEVEL 1.9 MG/DL (1.8-2.4); PHOSPHORUS LEVEL 5.9 MG/DL (2.4-5.1); POTASSIUM SERUM 5.8 MMOL/L (3.5-5.1); SODIUM LEVEL 148.0 MMOL/L (136-145)
[2025-05-07 09:07] LABS: LYMPHOCYTES 14 % (16-44); METAMYELOCYTES 4 % (0-0); MONOCYTES 9 % (0-5); MYELOCYTES 8 % (0-0); NEUTROPHILS 51 % (28-66); PROMYELOCYTES 2 % (0-0)
[2025-05-07 09:09] LABS: ATYPICAL LYMPH 2 % (0-5); BLAST CELLS 8 % (0-0)
[2025-05-07 09:10] LABS: PLATELET ESTIMATE DECREASED (NORMAL)
[2025-05-07 09:55] LABS: VANCOMYCIN RANDOM 3.8 UG/ML
[2025-05-07] MEDS ORDERED: PROPOFOL 1,000 MG/100 ML VIAL As Ordered ONE (10:04)
[2025-05-07] MEDS: SODIUM BICARBONATE 150 MEQ in D5W 1,000 ML IV SCH (10:09)
[2025-05-07] MEDS: EPINEPHrine HCL INJ 4 MG in D5W 246 ML IV SCH (10:12)
[2025-05-07] MEDS: SODIUM BICARBONATE 8.4% INJ 50ML SYRINGE IV STA ×3 (10:30→13:17)
[2025-05-07 11:36] LABS: CK-MB VALUE MASS 18.2 NG/ML (<3.6)
[2025-05-07] MEDS: PANTOPRAZOLE 40MG VIAL IV SCH (11:42)
[2025-05-07 11:43] LABS: CPK CREATINE PHOSPHOKINASE 463.0 U/L (34-145); MB/CK RELATIVE INDEX 3.93 (< OR =4)
[2025-05-07] MEDS: VANCOMYCIN HCL 1,250 MG, VIAL MATE ADAPTER 1 EACH in NS 250 ML IV ONE (11:50)
[2025-05-07] MEDS: NS 500 ML IV ONE (11:52)
[2025-05-07 12:14] LABS: ABG BASE EXCESS -29.5 (-2.0-2.0); ABG HCO3 3.8 MMOL/L (22.0-26.0); ABG O2 SATURATION 96.3 % (95.0-99.0); ABG PARTIAL PRESSURE CO2 25.3 mmHg (35.0-45.0); ABG PARTIAL PRESSURE O2 128.9 mmHg (75.0-100.0); ABG STANDARD HCO3 3.8 MMOL/L. (22.0-26.0); ABG TOTAL CO2 4.5 MMOL/L (23.0-31.0)
[2025-05-07 12:16] LABS: ABG pH (ARTERIAL) 6.789 UNITS (7.350-7.450)
[2025-05-07 12:25] LABS: BASO # 0.2 10^3/uL (0.0-0.2); BASO % 0.6 % (0.0-1.0); EOS # 0.1 10^3/uL (0.0-0.5); EOS % 0.2 % (0.0-3.0); LYMPH # 2.6 10^3/uL (1.5-5.0); LYMPH % 9.7 % (24.0-44.0); MONO # 2.1 10^3/uL (0.0-0.8); MONO % 7.7 % (2.0-8.0); NEUTROPHILS # 17.8 10^3/uL (1.5-8.5); NEUTROPHILS % 66.5 % (36.0-66.0)
[2025-05-07 12:44] LABS: PLATELET COUNT, AUTOMATED 55 10^3/uL (150-450)
[2025-05-07 12:52] LABS: INR 3.62
[2025-05-07] MEDS ORDERED: DEXTROSE 50% 50 ML SYRINGE As Ordered ONE (13:11)
[2025-05-07] MEDS: DEXTROSE 50% 50 ML SYRINGE IV STA (13:12)
[2025-05-07] MEDS ORDERED: NOREPINEPHRINE 4 MG IN D5W 250 ML IVBAG (16 MCG/ML) As Ordered ONE (13:21)
[2025-05-07] MEDS ORDERED: NOREPINEPHRINE 4MG IN D5 250ML 4 MG in IV 1 EA IV SCH (13:25)
[2025-05-07 13:42] LABS: CALCIUM LEVEL 8.8 MG/DL (8.3-10.6); CARBON DIOXIDE LEVEL < 10.0 MMOL/L (20-31); CHLORIDE LEVEL 112 MMOL/L (98-107); CREATININE FOR GFR 1.95 MG/DL (0.55-1.30); GLOMERULAR FILTRATION RATE 27.5 (>45); POTASSIUM SERUM 4.9 MMOL/L (3.5-5.1); SODIUM LEVEL 146 MMOL/L (136-145)
[2025-05-07] MEDS ORDERED: HEPARIN 1,000 UNITS/ML 10 ML VIAL (FOR RADIOLOGY & DIALYSIS ONLY) IV STA (14:21)
[2025-05-07] MEDS ORDERED: HEPARIN 1000 UNIT/ML CRRT 20,000 UNITS in IV 1 EA CRRT SCH (14:35)
[2025-05-07] MEDS: MEROPENEM 1 GM in IV 1 EA IV SCH (16:14)
[2025-05-07] MEDS: **NOTE PATIENT COMMENT** MISC XX SCH (18:00)
[2025-05-07] MEDS: EPINEPHrine HCL INJ 16 MG in D5W 984 ML IV SCH (18:22)
[2025-05-07] MEDS ORDERED: HEPARIN 1,000 UNITS/ML 10 ML VIAL (FOR RADIOLOGY & DIALYSIS ONLY) CRRT PRN (18:30)
[2025-05-07 18:33] LABS: PLATELET COUNT, AUTOMATED 34 10^3/uL (150-450)
[2025-05-07 18:42] LABS: ABG BASE EXCESS -31.2 (-2.0-2.0); ABG HCO3 3.5 MMOL/L (22.0-26.0); ABG O2 SATURATION 86.0 % (95.0-99.0); ABG PARTIAL PRESSURE CO2 28.0 mmHg (35.0-45.0); ABG PARTIAL PRESSURE O2 72.9 mmHg (75.0-100.0); ABG STANDARD HCO3 2.9 MMOL/L. (22.0-26.0); ABG TOTAL CO2 4.4 MMOL/L (23.0-31.0); ABG pH (ARTERIAL) 6.716 UNITS (7.350-7.450)
[2025-05-07 19:10] LABS: ALT/SGPT 431 U/L (7.0-40); CALCIUM LEVEL 7.5 MG/DL (8.3-10.6); CARBON DIOXIDE LEVEL < 10.0 MMOL/L (20-31); CHLORIDE LEVEL 110 MMOL/L (98-107); CREATININE FOR GFR 1.87 MG/DL (0.55-1.30); GLOMERULAR FILTRATION RATE 29.0 (>45); PHOSPHORUS LEVEL 6.6 MG/DL (2.4-5.1); POTASSIUM SERUM 4.7 MMOL/L (3.5-5.1); SODIUM LEVEL 147 MMOL/L (136-145)
[2025-05-07 19:13] LABS: AST/SGOT 2473 U/L (<34)
[2025-05-07 19:17] LABS: INR 4.99
[2025-05-07] MEDS ORDERED: MORPHINE 2 MG/ML 1 ML VIAL IV PRN (21:20)
[2025-05-07] MEDS ORDERED: ATROPINE SULFATE 1% OPHTH SOLN 2 ML BTL SL PRN (21:20)
[2025-05-07] MEDS ORDERED: FLEET ENEMA PR PRN (21:20)
[2025-05-07] MEDS ORDERED: HYOSCYAMINE SULFATE 0.125 MG SUBL TABLET PO PRN (21:20)
[2025-05-07] MEDS ORDERED: ONDANSETRON 4MG/2ML VIAL IV PRN (21:20)
[2025-05-07] MEDS ORDERED: ONDANSETRON 4MG ORAL DISINTEGRATING TAB PO PRN (21:20)
[2025-05-07] MEDS ORDERED: ACETAMINOPHEN 325 MG TAB PO PRN (21:20)
[2025-05-07] MEDS ORDERED: BISACODYL 10 MG SUPP PR PRN (21:20)
[2025-05-07] MEDS ORDERED: ACETAMINOPHEN 650 MG SUPP PR PRN (21:20)
[2025-05-07] MEDS ORDERED: LORazepam 1 MG TAB PO PRN (21:20)
[2025-05-07] MEDS ORDERED: MORPHINE 10 MG/0.5 ML ORAL CONCENTRATE SOLUTION U/D SL PRN (21:20)
[2025-05-07] MEDS ORDERED: SCOPOLAMINE 1MG TRANSDERMAL PATCH TOP PRN (21:20)
[2025-05-07] MEDS ORDERED: VANCOMYCIN HCL 500 MG in DEXTROSE 5% (D5W) MINI-BAG PLU 100 ML IV SCH (23:00)
[2025-05-08] MEDS ORDERED: VANCOMYCIN HCL 750 MG, VIAL MATE ADAPTER 1 EACH in NS 250 ML IV SCH (09:00)
[2025-05-08] MEDS ORDERED: VANCOMYCIN HCL 1,000 MG, VIAL MATE ADAPTER 1 EACH in NS 250 ML IV SCH (09:00)
== END 2025-05-07 22:22 | disposition expired | DRG 871 ==
LOC: M ED 08:55 → M ED INP 13:54 → M PCU 14:59 → M ICU 05-07 08:16
PROVIDERS: ADMIT Internal Medicine Nephrology; ATTEND Internal Medicine Nephrology
PROC: 30233N1 Transfusion of Nonautologous Red Blood Cells into Peripheral Vein, Percutaneous Approach (ICD-10-PCS; principal; 2025-05-07)
PROC: B246ZZZ Ultrasonography of Right and Left Heart (ICD-10-PCS; 2025-05-07)
PROC: 03HC33Z Insertion of Infusion Device into Left Radial Artery, Percutaneous Approach (ICD-10-PCS; 2025-05-07)
PROC: 5A1935Z Respiratory Ventilation, Less than 24 Consecutive Hours (ICD-10-PCS; 2025-05-07)
PROC: 0BH17EZ Insertion of Endotracheal Airway into Trachea, Via Natural or Artificial Opening (ICD-10-PCS; 2025-05-07)
PROC: 02HV33Z Insertion of Infusion Device into Superior Vena Cava, Percutaneous Approach (ICD-10-PCS; 2025-05-07)
DX: A41.9 Sepsis, unspecified organism (principal); G93.41 Metabolic encephalopathy; J18.9 Pneumonia, unspecified organism; J96.01 Acute respiratory failure with hypoxia; R65.21 Severe sepsis with septic shock; D65 Disseminated intravascular coagulation [defibrination syndrome]; K72.00 Acute and subacute hepatic failure without coma; A04.72 Enterocolitis due to Clostridium difficile, not specified as recurrent; N17.9 Acute kidney failure, unspecified; A04.4 Other intestinal Escherichia coli infections; E87.20 Acidosis, unspecified; Z66 Do not resuscitate; J44.9 Chronic obstructive pulmonary disease, unspecified; F10.90 Alcohol use, unspecified, uncomplicated; I25.10 Atherosclerotic heart disease of native coronary artery without angina pectoris; I25.2 Old myocardial infarction; Z95.5 Presence of coronary angioplasty implant and graft; I73.9 Peripheral vascular disease, unspecified; F17.200 Nicotine dependence, unspecified, uncomplicated; I35.0 Nonrheumatic aortic (valve) stenosis; I27.20 Pulmonary hypertension, unspecified; M54.9 Dorsalgia, unspecified; K21.9 Gastro-esophageal reflux disease without esophagitis; G47.00 Insomnia, unspecified; G43.909 Migraine, unspecified, not intractable, without status migrainosus; Z90.79 Acquired absence of other genital organ(s); R74.01 Elevation of levels of liver transaminase levels; Z79.82 Long term (current) use of aspirin; Z79.899 Other long term (current) drug therapy; Z88.0 Allergy status to penicillin; Z88.6 Allergy status to analgesic agent; Z88.8 Allergy status to other drugs, medicaments and biological substances; E87.6 Hypokalemia; E83.51 Hypocalcemia; E16.2 Hypoglycemia, unspecified; M79.662 Pain in left lower leg; Z95.828 Presence of other vascular implants and grafts; R07.89 Other chest pain; H70.91 Unspecified mastoiditis, right ear; I46.9 Cardiac arrest, cause unspecified; D64.9 Anemia, unspecified